=== PATIENT | female | born 1930 | race Caucasian/White ===

== ENCOUNTER → 2016-07-03 | Outpatient (CLI) | payer MEDICARE, BC ==
[~2016-07-03] MED LIST: ASPIRIN E.C. 8181 MG PO; ATIVAN 0.50.5 MG/TAB PO; CARDIZEM CD 12120 MG PO; CIPRO 250MG TA250 MG PO; COREG 3.123.125 MG/T PO; COREG 6.256.25 MG/TA PO; COUMADIN4 MG PO; GLUCOPHAGE500 MG/TAB PO; IMDUR 30MG30 MG/TAB PO; IMDUR 60MG60 MG/TAB PO; NITROSTAT0.4 MG/TAB SL; STOOL SOFTENER100 M2 PO; UNIRETIC PO; ZESTRIL 5MG5 MG PO; ZETIA 10MG TAB10 MG PO; ZOCOR 20MG20 MG PO
== END ==
LOC: COL.RAD 12:42
DX: R10.30 Lower abdominal pain, unspecified (principal); Z90.49 Acquired absence of other specified parts of digestive tract

== ENCOUNTER → 2017-02-20 | Outpatient (CLI) | payer MEDICARE, BC | LOC: MC.RAD 13:20 | DX: Z12.31 Encounter for screening mammogram for malignant neoplasm of breast (principal) ==

== ENCOUNTER → 2017-03-06 | Outpatient (CLI) | payer MEDICARE, BC ==
[2017-03-06 14:47] LABS: BASO # 0.1 (0.0-0.2); BASO % 0.8 % (0.0-2.0); EOS # 0.3 (0.0-0.7); EOS % 4.5 % (0-4.0); GRAN # 4.2 (1.4-6.5); HEMATOCRIT 39.1 % (37.0-47.0); HEMOGLOBIN 12.8 g/dl (12.5-16.0); MEAN CELL VOLUME 96 fl (80.0-100.0); MEAN CORPUSCULAR HEMOGLOBIN 31 pg (27.0-31.0); MEAN CORPUSCULAR HGB CONC 33 g/dl (33.0-37.0); MEAN PLATELET VOLUME 10.4 fl (7.4-10.4); MONO # 0.8 (0.1-0.6); MONO % 12.4 % (1.7-9.3); PLATELET COUNT 226 K/mm3 (130-400); RED BLOOD COUNT 4.07 M/mm3 (4.10-5.30); WHITE BLOOD COUNT 6.4 K/mm3 (4.8-10.8)
[2017-03-06 15:07] LABS: ADJUSTED CALCIUM 9.6 mg/dL (8.4-10.2); ALBUMIN 3.7 gm/dL (3.5-5.0); BILIRUBIN,TOTAL 1.2 mg/dL (0.0-1.0); CALCIUM 9.4 mg/dL (8.4-10.2); CREATININE, serum 0.83 mg/dL (0.52-1.25); POTASSIUM 4.4 mmol/L (3.4-5.0); TOTAL PROTEIN 6.9 gm/dL (6.4-8.2)
[2017-03-06 15:18] LABS: TROPONIN-I 0.023 ng/mL (0.000-0.034)
== END ==
LOC: ZCOL.LAB 14:36
PROVIDERS: Internal Medicine
DX: I25.10 Atherosclerotic heart disease of native coronary artery without angina pectoris (principal)

== ENCOUNTER → 2018-01-05 | Outpatient (CLI) | payer MEDICARE, BC ==
[~2018-01-05] MED LIST changes: +COREG12.5 MG PO; +INCRUSE EL62.5 MCG/A IH; +RANEXA 500MG T500 MG PO
== END ==
LOC: COL.RAD 10:43
DX: R91.1 Solitary pulmonary nodule (principal); Z95.2 Presence of prosthetic heart valve

== ENCOUNTER → 2018-02-17 | Outpatient (CLI) | payer MEDICARE, BC | LOC: MC.RAD 08:52 | DX: Z12.31 Encounter for screening mammogram for malignant neoplasm of breast (principal); Z78.0 Asymptomatic menopausal state ==

== ENCOUNTER → 2018-03-31 | Outpatient (CLI) | payer MEDICARE, BC | LOC: COL.RAD 10:21 | DX: N30.21 Other chronic cystitis with hematuria (principal); N26.1 Atrophy of kidney (terminal) ==

== ENCOUNTER 2018-05-09 15:31 | Inpatient (IN) | payer MEDICARE, BC ==
[2018-05-09] VITALS (155 sets, daily range): BP systolic 131–146; BP diastolic 54–60; PULSE 77–88; TEMP 97.9; O2SAT 94–100
[~2018-05-09] VITALS: Ht 157.5 cm; Wt 73.3 kg
[2018-05-09] MEDS ORDERED: COREG 6.256.25 MG/TA PO (16:41)
[2018-05-09] MEDS ORDERED: ISOSORBIDE MON120 MG PO (16:42)
[2018-05-09] MEDS ORDERED: ASPIRIN 81M81 MG/TA2 PO (16:44)
[2018-05-09] MEDS ORDERED: COUMADIN 2MG2 MG/TAB PO (16:46)
[2018-05-09 16:52] LABS: BASO % 0.4 % (0.0-2.0); EOS # 0.2 (0.0-0.7); EOS % 4.4 % (0-4.0); GRAN # 3.4 (1.4-6.5); GRAN % 62.9 % (42.2-75.2); LYMPH % 18.8 % (20.0-51.0); MEAN CELL VOLUME 102 fl (80.0-100.0); MEAN CORPUSCULAR HGB CONC 32 g/dl (33.0-37.0); MEAN PLATELET VOLUME 10.1 fl (7.4-10.4); MONO # 0.7 (0.1-0.6); MONO % 13.1 % (1.7-9.3); PLATELET COUNT 199 K/mm3 (130-400); RED BLOOD COUNT 2.06 M/mm3 (4.10-5.30); REDCELL DISTRIBUTION WIDTH-CV 15.3 % (11.5-14.5)
[2018-05-09 16:58] LABS: INR 4.6 (0.8-3.0)
[2018-05-09 17:00] LABS: PARTIAL THROMBOPLASTIN TIME 47.8 SECONDS (26.0-37.0)
[2018-05-09 17:02] LABS: ALANINE AMINOTRANSFERASE 34 U/L (9-52); ALBUMIN 3.1 gm/dL (3.5-5.0); ALKALINE PHOSPHATASE 51 U/L (50-136); ANION GAP 4 mmol/L (7-16); AST,SGOT 31 U/L (15-37); BILIRUBIN,TOTAL 0.5 mg/dL (0.0-1.0); BLOOD UREA NITROGEN 26 mg/dL (7-17); CALCIUM 8.4 mg/dL (8.4-10.2); CARBON DIOXIDE 28 mmol/L (22-30); CHLORIDE 107 mmol/L (98-107); CREATININE, serum 0.68 mg/dL (0.52-1.25); GLUCOSE 194 mg/dL (74-106); POTASSIUM 4.1 mmol/L (3.4-5.0); SODIUM 139 mmol/L (137-145); TOTAL PROTEIN 5.9 gm/dL (6.4-8.2)
[2018-05-09 17:06] LABS: HEMATOCRIT 21.1 % (37.0-47.0); HEMOGLOBIN 6.8 g/dl (12.5-16.0); MEAN CORPUSCULAR HEMOGLOBIN 33 pg (27.0-31.0)
[2018-05-09 17:20] LABS: TROPONIN-I < 0.012 ng/mL (0.000-0.034)
[2018-05-10] VITALS (412 sets, daily range): BP systolic 104–164; BP diastolic 45–67; PULSE 75–104; TEMP 97.8–98.5; O2SAT 89–100
[2018-05-10] MEDS ORDERED: TYLENOL 500MG500 MG PO (01:15)
[2018-05-10] MEDS ORDERED: FD GARD PO (01:19)
[2018-05-10 02:03] LABS: HEMATOCRIT 24.4 % (37.0-47.0); HEMOGLOBIN 8.1 g/dl (12.5-16.0)
[2018-05-10 05:20] LABS: BASO % 0.4 % (0.0-2.0); EOS # 0.3 (0.0-0.7); EOS % 4.6 % (0-4.0); GRAN # 3.6 (1.4-6.5); GRAN % 62.6 % (42.2-75.2); LYMPH # 1.2 (1.2-3.4); LYMPH % 20.3 % (20.0-51.0); MEAN CELL VOLUME 98 fl (80.0-100.0); MEAN CORPUSCULAR HGB CONC 33 g/dl (33.0-37.0); MEAN PLATELET VOLUME 9.9 fl (7.4-10.4); MONO # 0.7 (0.1-0.6); MONO % 11.9 % (1.7-9.3); PLATELET COUNT 176 K/mm3 (130-400); RED BLOOD COUNT 2.39 M/mm3 (4.10-5.30); REDCELL DISTRIBUTION WIDTH-CV 16.9 % (11.5-14.5)
[2018-05-10 05:23] LABS: HEMATOCRIT 23.4 % (37.0-47.0); HEMOGLOBIN 7.7 g/dl (12.5-16.0); MEAN CORPUSCULAR HEMOGLOBIN 32 pg (27.0-31.0)
[2018-05-10 05:32] LABS: ALANINE AMINOTRANSFERASE 41 U/L (9-52); ALBUMIN 2.9 gm/dL (3.5-5.0); ALKALINE PHOSPHATASE 43 U/L (50-136); ANION GAP 1 mmol/L (7-16); AST,SGOT 28 U/L (15-37); BILIRUBIN,TOTAL 1.1 mg/dL (0.0-1.0); BLOOD UREA NITROGEN 19 mg/dL (7-17); CALCIUM 8.3 mg/dL (8.4-10.2); CARBON DIOXIDE 29 mmol/L (22-30); CHLORIDE 111 mmol/L (98-107); CHOLESTEROL 100 mg/dL (120-200); CHOLESTEROL RISK RATIO 2.8; CREATININE, serum 0.61 mg/dL (0.52-1.25); GLUCOSE 128 mg/dL (74-106); HDL CHOLESTEROL 35 mg/dL; LDL CHOLESTEROL 36 mg/dL; POTASSIUM 3.9 mmol/L (3.4-5.0); SODIUM 141 mmol/L (137-145); TOTAL PROTEIN 5.6 gm/dL (6.4-8.2); TRIGLYCERIDE 145 mg/dL
[2018-05-10 05:45] LABS: TROPONIN-I < 0.012 ng/mL (0.000-0.034)
[2018-05-10 05:55] LABS: PROTHROMBIN TIME 34.1 SECONDS (9.7-12.8)
[2018-05-10 13:56] LABS: RETIC # 0.15 M/mm3 (0.02-0.16)
[2018-05-10 14:02] LABS: IRON,SERUM 85 ug/dL (35-150)
[2018-05-10 14:11] LABS: TOTAL IRON BINDING CAPACITY 370 ug/dL (265-497)
[2018-05-10 14:17] LABS: FOLATE (FOLIC ACID) 9.8 ng/mL (7.0-31.4)
[2018-05-10 14:41] LABS: FERRITIN 18 ng/mL (11-264)
[2018-05-10 18:15] LABS: BASO % 0.3 % (0.0-2.0); EOS # 0.2 (0.0-0.7); EOS % 1.8 % (0-4.0); GRAN # 6.9 (1.4-6.5); GRAN % 79.3 % (42.2-75.2); LYMPH # 0.8 (1.2-3.4); LYMPH % 9.4 % (20.0-51.0); MEAN CELL VOLUME 99 fl (80.0-100.0); MEAN CORPUSCULAR HGB CONC 33 g/dl (33.0-37.0); MEAN PLATELET VOLUME 10.4 fl (7.4-10.4); MONO # 0.8 (0.1-0.6); MONO % 8.6 % (1.7-9.3); PLATELET COUNT 204 K/mm3 (130-400); RED BLOOD COUNT 2.79 M/mm3 (4.10-5.30); REDCELL DISTRIBUTION WIDTH-CV 17.6 % (11.5-14.5)
[2018-05-10 18:21] LABS: HEMATOCRIT 27.7 % (37.0-47.0); HEMOGLOBIN 9.1 g/dl (12.5-16.0); MEAN CORPUSCULAR HEMOGLOBIN 33 pg (27.0-31.0)
[2018-05-11] VITALS (15 sets, daily range): BP systolic 83–141; BP diastolic 20–65; PULSE 84–95; TEMP 97.9–98.4
[2018-05-11 09:02] LABS: BASO % 0.2 % (0.0-2.0); EOS # 0.3 (0.0-0.7); EOS % 4.1 % (0-4.0); GRAN # 4.2 (1.4-6.5); GRAN % 69.6 % (42.2-75.2); LYMPH # 0.9 (1.2-3.4); LYMPH % 15.3 % (20.0-51.0); MEAN CELL VOLUME 103 fl (80.0-100.0); MEAN CORPUSCULAR HGB CONC 32 g/dl (33.0-37.0); MEAN PLATELET VOLUME 10.3 fl (7.4-10.4); MONO # 0.6 (0.1-0.6); MONO % 10.6 % (1.7-9.3); PLATELET COUNT 229 K/mm3 (130-400); RED BLOOD COUNT 2.43 M/mm3 (4.10-5.30); REDCELL DISTRIBUTION WIDTH-CV 17.7 % (11.5-14.5)
[2018-05-11 09:08] LABS: MEAN CORPUSCULAR HEMOGLOBIN 33 pg (27.0-31.0)
[2018-05-11 09:09] LABS: INR 1.3 (0.8-3.0); PROTHROMBIN TIME 14.8 SECONDS (9.7-12.8)
[2018-05-11 09:12] LABS: CALCIUM 8.7 mg/dL (8.4-10.2); CREATININE, serum 0.68 mg/dL (0.52-1.25); POTASSIUM 3.7 mmol/L (3.4-5.0)
[2018-05-12] VITALS (12 sets, daily range): BP systolic 110–150; BP diastolic 32–51; PULSE 79–94; TEMP 97.8–99
[2018-05-12 03:16] LABS: BASO % 0.2 % (0.0-2.0); EOS # 0.3 (0.0-0.7); GRAN # 4.2 (1.4-6.5); GRAN % 67.8 % (42.2-75.2); LYMPH # 0.9 (1.2-3.4); LYMPH % 14.8 % (20.0-51.0); MEAN CELL VOLUME 103 fl (80.0-100.0); MEAN CORPUSCULAR HGB CONC 31 g/dl (33.0-37.0); MEAN PLATELET VOLUME 10.2 fl (7.4-10.4); MONO # 0.8 (0.1-0.6); MONO % 12.9 % (1.7-9.3); PLATELET COUNT 181 K/mm3 (130-400); RED BLOOD COUNT 1.91 M/mm3 (4.10-5.30); REDCELL DISTRIBUTION WIDTH-CV 17.8 % (11.5-14.5)
[2018-05-12 03:17] LABS: HEMATOCRIT 19.7 % (37.0-47.0); HEMOGLOBIN 6.1 g/dl (12.5-16.0); MEAN CORPUSCULAR HEMOGLOBIN 32 pg (27.0-31.0)
[2018-05-12 03:24] LABS: INR 1.3 (0.8-3.0); PROTHROMBIN TIME 14.2 SECONDS (9.7-12.8)
[2018-05-12 03:28] LABS: CALCIUM 8.1 mg/dL (8.4-10.2); CREATININE, serum 0.69 mg/dL (0.52-1.25); MAGNESIUM 1.8 mg/dL (1.6-2.3)
[2018-05-12 11:08] LABS: HEMATOCRIT 24.5 % (37.0-47.0); HEMOGLOBIN 7.8 g/dl (12.5-16.0)
[2018-05-12 18:39] LABS: HEMATOCRIT 23.9 % (37.0-47.0); HEMOGLOBIN 7.8 g/dl (12.5-16.0)
[2018-05-13] VITALS (9 sets, daily range): BP systolic 105–140; BP diastolic 41–63; PULSE 79–89; TEMP 97.7–98.8
[2018-05-13 02:27] LABS: BASO % 0.3 % (0.0-2.0); EOS # 0.3 (0.0-0.7); EOS % 4.3 % (0-4.0); GRAN # 4.6 (1.4-6.5); GRAN % 66.2 % (42.2-75.2); LYMPH # 1.2 (1.2-3.4); LYMPH % 17.4 % (20.0-51.0); MEAN CELL VOLUME 100 fl (80.0-100.0); MEAN CORPUSCULAR HGB CONC 32 g/dl (33.0-37.0); MEAN PLATELET VOLUME 10.1 fl (7.4-10.4); MONO # 0.8 (0.1-0.6); MONO % 11.4 % (1.7-9.3); PLATELET COUNT 169 K/mm3 (130-400); RED BLOOD COUNT 2.17 M/mm3 (4.10-5.30); REDCELL DISTRIBUTION WIDTH-CV 18.2 % (11.5-14.5)
[2018-05-13 02:31] LABS: HEMATOCRIT 21.6 % (37.0-47.0); MEAN CORPUSCULAR HEMOGLOBIN 32 pg (27.0-31.0)
[2018-05-13 02:39] LABS: CALCIUM 8.2 mg/dL (8.4-10.2); CREATININE, serum 0.7 mg/dL (0.52-1.25); POTASSIUM 3.7 mmol/L (3.4-5.0)
[2018-05-13 08:54] LABS: HEMATOCRIT 27.9 % (37.0-47.0); HEMOGLOBIN 8.9 g/dl (12.5-16.0)
== END 2018-05-13 13:38 | disposition short-term general hospital (02) | DRG 378 ==
LOC: COL.ER 15:31 → MEDICAL 17:27 → ICU 17:27 → MEDICAL 05-10 20:27
PROVIDERS: Family Medicine; Hospitalist; Internal Medicine; Internal Medicine Cardiovascular Disease; Internal Medicine Gastroenterology; Nurse Practitioner Family; Physician Assistant
PROC: 0W3P8ZZ Control Bleeding in Gastrointestinal Tract, Via Natural or Artificial Opening Endoscopic (ICD-10-PCS; principal; 2018-05-11 12:45)
PROC: 0DJD8ZZ Inspection of Lower Intestinal Tract, Via Natural or Artificial Opening Endoscopic (ICD-10-PCS; 2018-05-11 12:45)
DX: K31.811 Angiodysplasia of stomach and duodenum with bleeding (principal); I25.110 Atherosclerotic heart disease of native coronary artery with unstable angina pectoris; D62 Acute posthemorrhagic anemia; Z66 Do not resuscitate; I16.0 Hypertensive urgency; I10 Essential (primary) hypertension; I25.10 Atherosclerotic heart disease of native coronary artery without angina pectoris; E11.9 Type 2 diabetes mellitus without complications; Z95.5 Presence of coronary angioplasty implant and graft; E78.5 Hyperlipidemia, unspecified; Z79.01 Long term (current) use of anticoagulants; Z95.2 Presence of prosthetic heart valve; Z87.891 Personal history of nicotine dependence; K29.80 Duodenitis without bleeding
CPT/HCPCS: 99222-AI; 99233-AI; 99239; A9502; A9560; C9113; J1644; J1815; J2405; J2704; J2765; J2785; J7030; P9016

== ENCOUNTER → 2018-08-03 | Outpatient (CLI) | payer MEDICARE, BC | LOC: ZCOL.LAB 11:26 | DX: D62 Acute posthemorrhagic anemia (principal) ==

== ENCOUNTER → 2018-08-03 | Outpatient (CLI) | payer MEDICARE, BC | LOC: ZCOL.LAB 15:10 | DX: D62 Acute posthemorrhagic anemia (principal); R19.5 Other fecal abnormalities ==

== ENCOUNTER → 2018-08-18 | Outpatient (CLI) | payer MEDICARE, BC ==
[~2018-08-18] MED LIST changes: +ASPIRIN 81M81 MG/TA2 PO; +COUMADIN 2MG2 MG/TAB PO; +FD GARD PO; +ISOSORBIDE MON120 MG PO; +TYLENOL 500MG500 MG PO
[2018-08-18 17:31] LABS: BASO % 0.5 % (0.0-2.0); EOS # 0.4 (0.0-0.7); EOS % 6.1 % (0-4.0); GRAN # 3.3 (1.4-6.5); GRAN % 57.5 % (42.2-75.2); LYMPH # 1.3 (1.2-3.4); LYMPH % 22.6 % (20.0-51.0); MEAN CELL VOLUME 82 fl (80.0-100.0); MEAN CORPUSCULAR HGB CONC 30 g/dl (33.0-37.0); MEAN PLATELET VOLUME 9.8 fl (7.4-10.4); MONO # 0.8 (0.1-0.6); MONO % 13.1 % (1.7-9.3); PLATELET COUNT 319 K/mm3 (130-400); RED BLOOD COUNT 3.58 M/mm3 (4.10-5.30); REDCELL DISTRIBUTION WIDTH-CV 19.9 % (11.5-14.5)
[2018-08-18 17:39] LABS: HEMATOCRIT 29.4 % (37.0-47.0); HEMOGLOBIN 8.8 g/dl (12.5-16.0); MEAN CORPUSCULAR HEMOGLOBIN 25 pg (27.0-31.0)
== END ==
LOC: ZCOL.LAB 15:58
PROVIDERS: Nurse Practitioner Family
DX: D62 Acute posthemorrhagic anemia (principal)

== ENCOUNTER → 2018-08-20 | Outpatient (CLI) | payer MEDICARE, BC | LOC: COL.RAD 13:53 | DX: N26.1 Atrophy of kidney (terminal) (principal); I25.10 Atherosclerotic heart disease of native coronary artery without angina pectoris; R91.1 Solitary pulmonary nodule; Z90.49 Acquired absence of other specified parts of digestive tract ==

== ENCOUNTER → 2018-08-23 | Outpatient (CLI) | payer MEDICARE, BC ==
[2018-08-23 10:19] LABS: BASO % 0.6 % (0.0-2.0); EOS # 0.4 (0.0-0.7); EOS % 7.1 % (0-4.0); GRAN % 57.9 % (42.2-75.2); LYMPH % 19.7 % (20.0-51.0); MEAN CELL VOLUME 84 fl (80.0-100.0); MEAN CORPUSCULAR HGB CONC 30 g/dl (33.0-37.0); MONO # 0.8 (0.1-0.6); MONO % 14.5 % (1.7-9.3); PLATELET COUNT 305 K/mm3 (130-400); RED BLOOD COUNT 3.44 M/mm3 (4.10-5.30); REDCELL DISTRIBUTION WIDTH-CV 20.4 % (11.5-14.5)
[2018-08-23 10:25] LABS: HEMATOCRIT 28.9 % (37.0-47.0); HEMOGLOBIN 8.6 g/dl (12.5-16.0); MEAN CORPUSCULAR HEMOGLOBIN 25 pg (27.0-31.0)
== END ==
LOC: ZCOL.LAB 09:26
PROVIDERS: Internal Medicine
DX: D62 Acute posthemorrhagic anemia (principal)

== ENCOUNTER → 2018-08-31 | Outpatient (CLI) | payer MEDICARE, BC ==
[2018-08-31 12:00] LABS: BASO % 0.7 % (0.0-2.0); EOS # 0.2 (0.0-0.7); EOS % 5.2 % (0-4.0); GRAN # 2.8 (1.4-6.5); GRAN % 64.7 % (42.2-75.2); LYMPH # 0.8 (1.2-3.4); LYMPH % 17.8 % (20.0-51.0); MEAN CELL VOLUME 82 fl (80.0-100.0); MEAN CORPUSCULAR HGB CONC 29 g/dl (33.0-37.0); MEAN PLATELET VOLUME 9.9 fl (7.4-10.4); MONO # 0.5 (0.1-0.6); MONO % 11.4 % (1.7-9.3); PLATELET COUNT 311 K/mm3 (130-400); RED BLOOD COUNT 3.54 M/mm3 (4.10-5.30); REDCELL DISTRIBUTION WIDTH-CV 19.9 % (11.5-14.5)
[2018-08-31 12:01] LABS: HEMATOCRIT 29.1 % (37.0-47.0); HEMOGLOBIN 8.5 g/dl (12.5-16.0); MEAN CORPUSCULAR HEMOGLOBIN 24 pg (27.0-31.0)
[2018-08-31 12:08] LABS: IRON,SERUM 27 ug/dL (35-150)
[2018-08-31 12:17] LABS: TOTAL IRON BINDING CAPACITY 485 ug/dL (265-497)
[2018-08-31 12:43] LABS: FERRITIN 9 ng/mL (11-264)
== END ==
LOC: ZCOL.LAB 10:55
PROVIDERS: Nurse Practitioner Family
DX: D50.0 Iron deficiency anemia secondary to blood loss (chronic) (principal)

== ENCOUNTER → 2019-03-25 | Outpatient (CLI) | payer MEDICARE, BC ==
[2019-03-25 11:29] LABS: MUCOUS Present /lpf; PH 6 (5-8); SQUAMOUS EPITHELIAL 0-2 /hpf; URINE APPEARANCE Cloudy; URINE BACTERIA None Seen /hpf; URINE BILIRUBIN Negative (NEGATIVE); URINE BLOOD 3+ (NEGATIVE); URINE COLOR Amber; URINE GLUCOSE Negative (NEGATIVE); URINE KETONE Negative (NEGATIVE); URINE LEUKOCYTE ESTERASE 2+ (NEGATIVE); URINE NITRATE Negative (NEGATIVE); URINE PROTEIN(semi-quant) 2+ (NEGATIVE); URINE RBC >50 /hpf; URINE UROBILINOGEN Negative (NEGATIVE)
[2019-03-25 11:42] LABS: COLLECTION METHOD CLEAN CATCH
== END ==
LOC: ZCOL.LAB 10:33
PROVIDERS: Family Medicine
DX: N30.01 Acute cystitis with hematuria (principal); R31.9 Hematuria, unspecified

== ENCOUNTER → 2019-05-17 | Outpatient (CLI) | payer MEDICARE, BC | LOC: COL.RAD 07:44 | DX: Z01.812 Encounter for preprocedural laboratory examination (principal); R10.13 Epigastric pain; Z90.49 Acquired absence of other specified parts of digestive tract | CPT/HCPCS: Q9967 ==

== ENCOUNTER 2019-06-27 14:38 | Emergency (ER) | payer MEDICARE, BC ==
[~2019-06-27] VITALS: Ht 157.5 cm; Wt 69.5 kg
[2019-06-27 15:12] LABS: BASO % 0.4 % (0.0-2.0); EOS # 0.4 (0.0-0.7); EOS % 5.5 % (0-4.0); GRAN # 4.6 (1.4-6.5); GRAN % 67.5 % (42.2-75.2); HEMOGLOBIN 10.1 g/dl (12.5-16.0); LYMPH # 0.9 (1.2-3.4); LYMPH % 13.2 % (20.0-51.0); MEAN CELL VOLUME 88 fl (80.0-100.0); MEAN CORPUSCULAR HEMOGLOBIN 26 pg (27.0-31.0); MEAN CORPUSCULAR HGB CONC 30 g/dl (33.0-37.0); MONO # 0.9 (0.1-0.6); MONO % 13.3 % (1.7-9.3); PLATELET COUNT 268 K/mm3 (130-400); RED BLOOD COUNT 3.82 M/mm3 (4.10-5.30); REDCELL DISTRIBUTION WIDTH-CV 15.6 % (11.5-14.5)
[2019-06-27 15:19] LABS: INR 2.5 (0.8-3.0); PROTHROMBIN TIME 29.7 SECONDS (9.7-12.8)
[2019-06-27 15:22] LABS: HEMATOCRIT 33.5 % (37.0-47.0); PARTIAL THROMBOPLASTIN TIME 45.2 SECONDS (26.0-37.0)
[2019-06-27 15:24] LABS: ALANINE AMINOTRANSFERASE 18 U/L (9-52); ALBUMIN 4.3 gm/dL (3.5-5.0); ALKALINE PHOSPHATASE 88 U/L (50-136); ANION GAP 10 mmol/L (7-16); AST,SGOT 33 U/L (15-37); BILIRUBIN,TOTAL 0.7 mg/dL (0.0-1.0); BLOOD UREA NITROGEN 19 mg/dL (7-17); CALCIUM 9.1 mg/dL (8.4-10.2); CARBON DIOXIDE 26 mmol/L (22-30); CHLORIDE 102 mmol/L (98-107); CREATININE, serum 0.74 (0.52-1.25); GLUCOSE 203 mg/dL (74-106); POTASSIUM 4.4 mmol/L (3.4-5.0); SODIUM 138 mmol/L (137-145); TOTAL PROTEIN 8.1 gm/dL (6.4-8.2)
[2019-06-27 15:37] LABS: TROPONIN-I < 0.012 ng/mL (0.000-0.035)
[2019-06-27] MEDS ORDERED: ASPIRIN 81M81 MG/TA2 PO (15:47)
[2019-06-27] MEDS ORDERED: COREG 6.256.25 MG/TA PO (15:48)
[2019-06-27] MEDS ORDERED: ISOSORBIDE MON120 MG PO (15:49)
[2019-06-27] MEDS ORDERED: ZETIA 10MG TAB10 MG PO (15:49)
[2019-06-27] MEDS ORDERED: GLUCOPHAGE500 MG/TAB PO (15:49)
[2019-06-27] MEDS ORDERED: ZOCOR 20MG20 MG PO (15:50)
[2019-06-27] MEDS ORDERED: ATIVAN 0.50.5 MG/TAB PO (15:51)
[2019-06-27] MEDS ORDERED: COUMADIN 3MG3 MG/TAB PO ×2 (15:51→15:52)
[2019-06-27] MEDS ORDERED: PROTONIX 40MG T40 MG PO (15:53)
[2019-06-27] MEDS ORDERED: COUMADIN4 MG PO (15:53)
[2019-06-27 16:11] LABS: COLLECTION METHOD CLEAN CATCH
[2019-06-27 16:22] LABS: PH 6 (5-8); SQUAMOUS EPITHELIAL None Seen /hpf; URINE APPEARANCE Clear; URINE BACTERIA Rare /hpf; URINE BILIRUBIN Negative (NEGATIVE); URINE BLOOD Negative (NEGATIVE); URINE COLOR Straw; URINE GLUCOSE Negative (NEGATIVE); URINE KETONE Negative (NEGATIVE); URINE LEUKOCYTE ESTERASE Negative (NEGATIVE); URINE NITRATE Negative (NEGATIVE); URINE PROTEIN(semi-quant) Negative (NEGATIVE); URINE RBC 0-2 /hpf; URINE UROBILINOGEN Negative (NEGATIVE)
[2019-06-27 18:38] VITALS: BP 154/64; PULSE 75; TEMP 98.4
== END 2019-06-27 18:38 | disposition home or self-care (01) ==
LOC: COL.ER 14:38
PROVIDERS: Family Medicine
DX: F41.9 Anxiety disorder, unspecified (principal); R07.89 Other chest pain; D64.9 Anemia, unspecified; I25.10 Atherosclerotic heart disease of native coronary artery without angina pectoris; I10 Essential (primary) hypertension; E11.9 Type 2 diabetes mellitus without complications; K21.9 Gastro-esophageal reflux disease without esophagitis; Z79.01 Long term (current) use of anticoagulants; Z79.82 Long term (current) use of aspirin

== ENCOUNTER → 2019-08-18 | Outpatient (CLI) | payer MEDICARE, BC ==
[~2019-08-18] MED LIST changes: +COUMADIN 3MG3 MG/TAB PO; +PROTONIX 40MG T40 MG PO
== END ==
LOC: COL.RAD 15:06
DX: R13.12 Dysphagia, oropharyngeal phase (principal); R49.0 Dysphonia

== ENCOUNTER 2019-12-03 18:26 | Emergency (ER) | payer MEDICARE, BC ==
[~2019-12-03] VITALS: Ht 157.5 cm; Wt 70.5 kg
[2019-12-03 18:48] LABS: BASO % 0.5 % (0.0-2.0); EOS # 0.5 (0.0-0.7); EOS % 7.7 % (0-4.0); GRAN % 64.5 % (42.2-75.2); HEMATOCRIT 34.1 % (37.0-47.0); LYMPH # 0.9 (1.2-3.4); LYMPH % 13.8 % (20.0-51.0); MEAN CELL VOLUME 101 fl (80.0-100.0); MEAN CORPUSCULAR HEMOGLOBIN 33 pg (27.0-31.0); MEAN CORPUSCULAR HGB CONC 32 g/dl (33.0-37.0); MEAN PLATELET VOLUME 10.2 fl (7.4-10.4); MONO # 0.8 (0.1-0.6); MONO % 13.2 % (1.7-9.3); PLATELET COUNT 253 K/mm3 (130-400); RED BLOOD COUNT 3.37 M/mm3 (4.10-5.30); REDCELL DISTRIBUTION WIDTH-CV 14.6 % (11.5-14.5)
[2019-12-03 18:52] LABS: INR 2.9 (0.8-3.0); PROTHROMBIN TIME 32.5 SECONDS (9.7-12.8)
[2019-12-03 18:55] LABS: PARTIAL THROMBOPLASTIN TIME 46.9 SECONDS (26.0-37.0)
[2019-12-03 19:02] LABS: ALANINE AMINOTRANSFERASE 26 U/L (4-34); ALBUMIN 4.2 gm/dL (3.5-5.0); ALKALINE PHOSPHATASE 73 U/L (50-136); ANION GAP 8 mmol/L (7-16); AST,SGOT 47 U/L (15-37); BLOOD UREA NITROGEN 19 mg/dL (7-17); CALCIUM 9.5 mg/dL (8.4-10.2); CARBON DIOXIDE 27 mmol/L (22-30); CHLORIDE 102 mmol/L (98-107); CREATININE, serum 0.76 (0.52-1.25); GLUCOSE 133 mg/dL (74-106); POTASSIUM 4.8 mmol/L (3.4-5.0); SODIUM 137 mmol/L (137-145); TOTAL PROTEIN 8.2 gm/dL (6.4-8.2)
[2019-12-03 19:13] LABS: TROPONIN-I < 0.012 ng/mL (0.000-0.035)
[2019-12-03 21:41] VITALS: BP 186/89; PULSE 81; TEMP 98.7
== END 2019-12-03 21:42 | disposition home or self-care (01) ==
LOC: COL.ER 18:26
PROVIDERS: Family Medicine
DX: I10 Essential (primary) hypertension (principal); I25.10 Atherosclerotic heart disease of native coronary artery without angina pectoris; Z79.01 Long term (current) use of anticoagulants; Z79.82 Long term (current) use of aspirin; Z95.5 Presence of coronary angioplasty implant and graft

== ENCOUNTER 2019-12-19 20:13 | Emergency (ER) | payer MEDICARE, BC ==
[~2019-12-19] VITALS: Ht 157.5 cm; Wt 72.7 kg
[2019-12-19 20:46] LABS: BASO % 0.8 % (0.0-2.0); EOS # 0.3 (0.0-0.7); EOS % 6.7 % (0-4.0); GRAN # 2.7 (1.4-6.5); GRAN % 57.4 % (42.2-75.2); HEMOGLOBIN 10.6 g/dl (12.5-16.0); LYMPH # 0.9 (1.2-3.4); LYMPH % 19.1 % (20.0-51.0); MEAN CELL VOLUME 101 fl (80.0-100.0); MEAN CORPUSCULAR HEMOGLOBIN 32 pg (27.0-31.0); MEAN CORPUSCULAR HGB CONC 32 g/dl (33.0-37.0); MEAN PLATELET VOLUME 10.1 fl (7.4-10.4); MONO # 0.8 (0.1-0.6); MONO % 15.8 % (1.7-9.3); PLATELET COUNT 251 K/mm3 (130-400); REDCELL DISTRIBUTION WIDTH-CV 13.8 % (11.5-14.5)
[2019-12-19 20:52] LABS: INR 2.6 (0.8-3.0); PROTHROMBIN TIME 29.2 SECONDS (9.7-12.8)
[2019-12-19 20:53] LABS: HEMATOCRIT 33.2 % (37.0-47.0)
[2019-12-19 20:59] LABS: ALANINE AMINOTRANSFERASE 18 U/L (4-34); ALBUMIN 4.2 gm/dL (3.5-5.0); ALKALINE PHOSPHATASE 71 U/L (50-136); ANION GAP 8 mmol/L (7-16); AST,SGOT 33 U/L (15-37); BILIRUBIN,TOTAL 0.7 mg/dL (0.0-1.0); BLOOD UREA NITROGEN 20 mg/dL (7-17); CALCIUM 9.3 mg/dL (8.4-10.2); CARBON DIOXIDE 26 mmol/L (22-30); CHLORIDE 103 mmol/L (98-107); CREATINE KINASE 65 U/L (30-135); CREATININE, serum 0.86 (0.52-1.25); GLUCOSE 169 mg/dL (74-106); POTASSIUM 4.3 mmol/L (3.4-5.0); SODIUM 137 mmol/L (137-145); TOTAL PROTEIN 8.2 gm/dL (6.4-8.2)
[2019-12-19 21:11] LABS: TROPONIN-I < 0.012 ng/mL (0.000-0.035)
[2019-12-19 21:31] VITALS: TEMP 98
[2019-12-19 22:44] LABS: COLLECTION METHOD CLEAN CATCH
[2019-12-19 22:50] LABS: PH 7 (5-8); SQUAMOUS EPITHELIAL None Seen /hpf; URINE APPEARANCE Clear; URINE BACTERIA None Seen /hpf; URINE BILIRUBIN Negative (NEGATIVE); URINE BLOOD Negative (NEGATIVE); URINE COLOR Straw; URINE GLUCOSE Negative (NEGATIVE); URINE KETONE Negative (NEGATIVE); URINE LEUKOCYTE ESTERASE Negative (NEGATIVE); URINE NITRATE Negative (NEGATIVE); URINE PROTEIN(semi-quant) Negative (NEGATIVE); URINE RBC 0-2 /hpf; URINE UROBILINOGEN Negative (NEGATIVE)
[2019-12-20 02:10] VITALS: BP 151/80; PULSE 84
== END 2019-12-20 02:10 | disposition home or self-care (01) ==
LOC: COL.ER 20:13
PROVIDERS: Emergency Medicine
DX: I10 Essential (primary) hypertension (principal); R10.13 Epigastric pain; E78.5 Hyperlipidemia, unspecified; I25.2 Old myocardial infarction; Z79.01 Long term (current) use of anticoagulants; Z90.710 Acquired absence of both cervix and uterus; Z79.84 Long term (current) use of oral hypoglycemic drugs; Z79.82 Long term (current) use of aspirin
CPT/HCPCS: J0360; J2060; Q9967

== ENCOUNTER → 2020-12-07 | Outpatient (CLI) | payer MEDICARE, BC ==
[~2020-12-07] MED LIST changes: +ACIDOPHILIS PO; +ALMACONE 360 M360 ML PO; +ANTI-DIARRHEAL2 MG PO; +ATIVAN 1MG T1 MG/TAB PO; +COLACE 100100 MG/CAP PO; +CYMBALTA 30MG30 MG PO; +DEBROX OT; +DULCOLAX S10 MG/SUPP RC; +DULCOLAX STOOL100 MG PO; +ENULOSE10 GM/15 M PO; +FENTANYL 12MCG TD; +FENTANYL 25 MCG TD; +FLEXERIL 1010 MG/TAB PO; +FLEXERIL5 MG PO; +HYDROCORTISONE30 G3 TP; +IMODIUM 2MG CAPS2 MG PO; +LIDODERM 5% PATC1 EA TP; +LIPITOR 10MG10 MG PO; +LOVENOX 8080 MG/0.8; +MIACALCIN NASA3.7 ML NS; +MIRALAX PA17 GM/Dose PO; +NORCO 325 MG-51 TAB PO; +OMNICEF 300MG300 MG PO; +PREDNISONE20 MG PO; +PRINIVIL20 MG PO; +PROBIOTIC BLEN1 EACH PO; +ROXANOL 20MG20 MG/ML SL; +SALONPAS1 EACH TP; +SYSTANE 0.3-0.1 EACH OP; +TYLENOL 325MG325 MG PO; +TYLENOL SU650 MG/SUP RC; +ZESTRIL 10MG10 MG PO; +ZOFRAN 4MG T4 MG/TAB PO; +ZOLOFT 50MG50 MG PO
[2020-12-07 13:20] LABS: BASO % 0.7 % (0.0-2.0); EOS # 0.1 (0.0-0.7); EOS % 2.2 % (0-4.0); GRAN # 4.4 (1.4-6.5); HEMOGLOBIN 10.4 g/dl (12.5-16.0); LYMPH # 0.5 (1.2-3.4); LYMPH % 8.8 % (20.0-51.0); MEAN CELL VOLUME 97 fl (80.0-100.0); MEAN CORPUSCULAR HEMOGLOBIN 32 pg (27.0-31.0); MEAN CORPUSCULAR HGB CONC 33 g/dl (33.0-37.0); MEAN PLATELET VOLUME 10.2 fl (7.4-10.4); MONO # 0.8 (0.1-0.6); MONO % 13.1 % (1.7-9.3); PLATELET COUNT 331 K/mm3 (130-400); RED BLOOD COUNT 3.25 M/mm3 (4.10-5.30); REDCELL DISTRIBUTION WIDTH-CV 14.4 % (11.5-14.5)
[2020-12-07 13:21] LABS: HEMATOCRIT 31.4 % (37.0-47.0)
[2020-12-07 13:22] LABS: IRON,SERUM 57 ug/dL (35-150)
[2020-12-07 13:31] LABS: TOTAL IRON BINDING CAPACITY 347 ug/dL (265-497)
== END ==
LOC: ZCOL.LAB 12:45
PROVIDERS: Nurse Practitioner Family
DX: D50.0 Iron deficiency anemia secondary to blood loss (chronic) (principal)

== ENCOUNTER 2020-12-30 14:38 | Emergency (ER) | payer MEDICARE, BC ==
[~2020-12-30] VITALS: Ht 157.5 cm; Wt 68.2 kg
[~2020-12-30 14:38] MED LIST changes: -ACIDOPHILIS PO; -ALMACONE 360 M360 ML PO; -ANTI-DIARRHEAL2 MG PO; -ATIVAN 1MG T1 MG/TAB PO; -COLACE 100100 MG/CAP PO; -CYMBALTA 30MG30 MG PO; -DEBROX OT; -DULCOLAX S10 MG/SUPP RC; -DULCOLAX STOOL100 MG PO; -ENULOSE10 GM/15 M PO; -FENTANYL 12MCG TD; -FENTANYL 25 MCG TD; -FLEXERIL 1010 MG/TAB PO; -FLEXERIL5 MG PO; -HYDROCORTISONE30 G3 TP; -IMODIUM 2MG CAPS2 MG PO; -LIDODERM 5% PATC1 EA TP; -LIPITOR 10MG10 MG PO; -LOVENOX 8080 MG/0.8; -MIACALCIN NASA3.7 ML NS; -MIRALAX PA17 GM/Dose PO; -NORCO 325 MG-51 TAB PO; -OMNICEF 300MG300 MG PO; -PREDNISONE20 MG PO; -PRINIVIL20 MG PO; -PROBIOTIC BLEN1 EACH PO; -ROXANOL 20MG20 MG/ML SL; -SALONPAS1 EACH TP; -SYSTANE 0.3-0.1 EACH OP; -TYLENOL 325MG325 MG PO; -TYLENOL SU650 MG/SUP RC; -ZESTRIL 10MG10 MG PO; -ZOFRAN 4MG T4 MG/TAB PO; -ZOLOFT 50MG50 MG PO
[2020-12-30 14:50] VITALS: TEMP 97.9
[2020-12-30 15:42] LABS: BASO % 0.6 % (0.0-2.0); EOS # 0.4 (0.0-0.7); EOS % 6.9 % (0-4.0); GRAN # 3.5 (1.4-6.5); GRAN % 67.3 % (42.2-75.2); HEMOGLOBIN 10.9 g/dl (12.5-16.0); LYMPH # 0.6 (1.2-3.4); LYMPH % 10.5 % (20.0-51.0); MEAN CELL VOLUME 96 fl (80.0-100.0); MEAN CORPUSCULAR HEMOGLOBIN 31 pg (27.0-31.0); MEAN CORPUSCULAR HGB CONC 32 g/dl (33.0-37.0); MEAN PLATELET VOLUME 9.4 fl (7.4-10.4); MONO # 0.8 (0.1-0.6); MONO % 14.5 % (1.7-9.3); PLATELET COUNT 301 K/mm3 (130-400); RED BLOOD COUNT 3.52 M/mm3 (4.10-5.30); REDCELL DISTRIBUTION WIDTH-CV 14.5 % (11.5-14.5)
[2020-12-30 15:43] LABS: HEMATOCRIT 33.9 % (37.0-47.0)
[2020-12-30 15:49] LABS: CALCIUM 9.8 mg/dL (8.4-10.2); CREATININE, serum 0.84 (0.52-1.25); POTASSIUM 4.4 mmol/L (3.4-5.0)
[2020-12-30 15:58] LABS: PROTHROMBIN TIME 94.6 SECONDS (9.7-12.8)
[2020-12-30 15:59] LABS: INR 8.3 (0.8-3.0)
[2020-12-30] MEDS ORDERED: SALONPAS1 EACH TP (17:33)
[2020-12-30 17:59] VITALS: BP 164/66; PULSE 72
[2021-02-16] MEDS ORDERED: ZESTRIL 5MG5 MG PO (18:47)
[2021-02-16] MEDS ORDERED: ZOLOFT 50MG50 MG PO (18:50)
[2021-02-16] MEDS ORDERED: NORCO 325 MG-51 TAB PO (18:52)
[2021-02-16] MEDS ORDERED: FENTANYL 12MCG TD (18:54)
[2021-02-19] MEDS ORDERED: FLEXERIL5 MG PO (08:37)
[2021-02-19] MEDS ORDERED: MIRALAX PA17 GM/Dose PO (08:40)
[2021-02-19] MEDS ORDERED: GLUCOPHAGE500 MG/TAB PO (08:40)
[2021-02-19] MEDS ORDERED: PROTONIX 40MG T40 MG PO (08:40)
[2021-02-19] MEDS ORDERED: DULCOLAX STOOL100 MG PO (08:41)
[2021-02-19] MEDS ORDERED: FENTANYL 12MCG TD (08:42)
[2021-02-19] MEDS ORDERED: ZOLOFT 50MG50 MG PO (08:42)
[2021-02-19] MEDS ORDERED: NORCO 325 MG-51 TAB PO (08:43)
[2021-02-19] MEDS ORDERED: ZESTRIL 10MG10 MG PO ×2 (08:43)
[2021-02-19] MEDS ORDERED: COREG 6.256.25 MG/TA PO (08:43)
[2021-02-19] MEDS ORDERED: ASPIRIN 81M81 MG/TA2 PO (08:43)
[2021-02-19] MEDS ORDERED: ZETIA 10MG TAB10 MG PO (08:44)
[2021-02-19] MEDS ORDERED: ISOSORBIDE MON120 MG PO (08:44)
[2021-02-19] MEDS ORDERED: ZOCOR 20MG20 MG PO (08:44)
[2021-02-19] MEDS ORDERED: OMNICEF 300MG300 MG PO (08:45)
== END 2020-12-30 18:00 | disposition home or self-care (01) ==
LOC: COL.ER 14:38
PROVIDERS: Physician Assistant
DX: R07.81 Pleurodynia (principal); D68.8 Other specified coagulation defects; I25.2 Old myocardial infarction; I25.10 Atherosclerotic heart disease of native coronary artery without angina pectoris; E11.9 Type 2 diabetes mellitus without complications; E78.5 Hyperlipidemia, unspecified; I10 Essential (primary) hypertension; Z79.82 Long term (current) use of aspirin; Z79.01 Long term (current) use of anticoagulants; Z79.84 Long term (current) use of oral hypoglycemic drugs; Z79.899 Other long term (current) drug therapy
CPT/HCPCS: Q9967

== ENCOUNTER → 2021-02-04 | Outpatient (CLI) | payer MEDICARE, BC ==
[~2021-02-04] MED LIST changes: +ACIDOPHILIS PO; +ALMACONE 360 M360 ML PO; +ANTI-DIARRHEAL2 MG PO; +ATIVAN 1MG T1 MG/TAB PO; +COLACE 100100 MG/CAP PO; +CYMBALTA 30MG30 MG PO; +DEBROX OT; +DULCOLAX S10 MG/SUPP RC; +DULCOLAX STOOL100 MG PO; +ENULOSE10 GM/15 M PO; +FENTANYL 12MCG TD; +FENTANYL 25 MCG TD; +FLEXERIL 1010 MG/TAB PO; +FLEXERIL5 MG PO; +HYDROCORTISONE30 G3 TP; +IMODIUM 2MG CAPS2 MG PO; +LIDODERM 5% PATC1 EA TP; +LIPITOR 10MG10 MG PO; +LOVENOX 8080 MG/0.8; +MIACALCIN NASA3.7 ML NS; +MIRALAX PA17 GM/Dose PO; +NORCO 325 MG-51 TAB PO; +OMNICEF 300MG300 MG PO; +PREDNISONE20 MG PO; +PRINIVIL20 MG PO; +PROBIOTIC BLEN1 EACH PO; +ROXANOL 20MG20 MG/ML SL; +SALONPAS1 EACH TP; +SYSTANE 0.3-0.1 EACH OP; +TYLENOL 325MG325 MG PO; +TYLENOL SU650 MG/SUP RC; +ZESTRIL 10MG10 MG PO; +ZOFRAN 4MG T4 MG/TAB PO; +ZOLOFT 50MG50 MG PO
== END ==
LOC: ZCOL.LAB 18:00
DX: N39.0 Urinary tract infection, site not specified (principal)

== ENCOUNTER 2021-02-26 10:06 | Outpatient (CLI) | payer MEDICARE, BC ==
[~2021-02-26] VITALS: Ht 157.5 cm; Wt 64.1 kg
[2021-02-26] VITALS (16 sets, daily range): BP systolic 160–207; BP diastolic 58–115; PULSE 76–94; TEMP 98.4
[~2021-02-26 10:06] MED LIST changes: -ACIDOPHILIS PO; -ALMACONE 360 M360 ML PO; -ANTI-DIARRHEAL2 MG PO; -ATIVAN 1MG T1 MG/TAB PO; -COLACE 100100 MG/CAP PO; -CYMBALTA 30MG30 MG PO; -DEBROX OT; -DULCOLAX S10 MG/SUPP RC; -ENULOSE10 GM/15 M PO; -FENTANYL 25 MCG TD; -FLEXERIL 1010 MG/TAB PO; -HYDROCORTISONE30 G3 TP; -IMODIUM 2MG CAPS2 MG PO; -LIDODERM 5% PATC1 EA TP; -LIPITOR 10MG10 MG PO; -LOVENOX 8080 MG/0.8; -MIACALCIN NASA3.7 ML NS; -PREDNISONE20 MG PO; -PRINIVIL20 MG PO; -PROBIOTIC BLEN1 EACH PO; -ROXANOL 20MG20 MG/ML SL; -SYSTANE 0.3-0.1 EACH OP; -TYLENOL 325MG325 MG PO; -TYLENOL SU650 MG/SUP RC; -ZOFRAN 4MG T4 MG/TAB PO
[2021-02-26] MEDS ORDERED: COUMADIN 3MG3 MG/TAB PO (12:52)
[2021-02-26] MEDS ORDERED: FENTANYL 12MCG TD (12:56)
[2021-02-26] MEDS ORDERED: FENTANYL 25 MCG TD (12:57)
[2021-02-26] MEDS ORDERED: NORCO 325 MG-51 TAB PO ×2 (13:00→13:01)
[2021-02-26] MEDS ORDERED: ATIVAN 0.50.5 MG/TAB PO (13:03)
[2021-02-26] MEDS ORDERED: LOVENOX 8080 MG/0.8 (13:05)
[2021-02-26] MEDS ORDERED: TYLENOL SU650 MG/SUP RC (13:11)
[2021-02-26] MEDS ORDERED: DULCOLAX S10 MG/SUPP RC (13:12)
[2021-02-26] MEDS ORDERED: COLACE 100100 MG/CAP PO (13:12)
--- NOTE | 2021-02-26 15:00 | NUR ---
Report taken from MINE Evans in [facility] [place] [facility]. Anesthesia was consulted during the procedure. Blood Pressure did elevate to 220/120. Post procedure her blood pressure was 186/84. This RN will continue to monitor and consult MINE Carreon at [facility] to gather last taken blood pressure medication.
--- NOTE | 2021-02-26 15:30 | NUR ---
Pt resting at this time. Daughter away to eat dinner.
--- NOTE | 2021-02-26 16:45 | NUR ---
Pt has intermittent pain with movement. Pt states her mid back pain is better than it was prior to the procedure. Pt is moving more with ease.
--- NOTE | 2021-02-26 16:45 | NUR ---
Called [facility] and spoke with MINE Delgadillo. Pt's last blood pressure medication was given yesterday, 02/25/21.
--- NOTE | 2021-02-26 17:00 | NUR ---
Ice pack applied to procedure site. Pt states this does give her relief.
--- NOTE | 2021-02-26 17:45 | NUR ---
Pt stated her mid back pain was 5/10. Before the procedure it was 10/10. Pt also complains of bilateral hip pain and rates the pain 7/10. Pt is moving around more with more ease prior to the procedure. Pt was encouraged to call radiology after 48-72 hours to report how she is doing. Pt and daughter aware.
--- NOTE | 2021-02-26 19:00 | NUR ---
Discharge instructions were reviewed with pt/daughter. Pt/daughter voice understanding. Blood pressure is within limits and no longer fluctuating. IV was discontinued with catheter tip intact, no phlebitis or infiltration. Pt was discharged with 1L of oxygen. MINE Carreon with [facility] stated earlier today on the phone that she has been on oxygen while staying there. Hernandez with [facility] transportation assisted pt back to [facility] with discharge papers in hand.
== END 2021-02-26 19:00 ==
LOC: COL.CAR 10:06
DX: S32.030A Wedge compression fracture of third lumbar vertebra, initial encounter for closed fracture (principal); S22.080A Wedge compression fracture of T11-T12 vertebra, initial encounter for closed fracture; S32.050G Wedge compression fracture of fifth lumbar vertebra, subsequent encounter for fracture with delayed healing; M80.00XA Age-related osteoporosis with current pathological fracture, unspecified site, initial encounter for fracture; I25.10 Atherosclerotic heart disease of native coronary artery without angina pectoris; I10 Essential (primary) hypertension; E11.9 Type 2 diabetes mellitus without complications; E78.00 Pure hypercholesterolemia, unspecified; I34.0 Nonrheumatic mitral (valve) insufficiency; M19.90 Unspecified osteoarthritis, unspecified site; G47.33 Obstructive sleep apnea (adult) (pediatric); Z85.820 Personal history of malignant melanoma of skin; Z79.01 Long term (current) use of anticoagulants; Z95.2 Presence of prosthetic heart valve; Z79.84 Long term (current) use of oral hypoglycemic drugs; Z79.899 Other long term (current) drug therapy; Z79.891 Long term (current) use of opiate analgesic; Z79.02 Long term (current) use of antithrombotics/antiplatelets; Z87.891 Personal history of nicotine dependence; Z90.710 Acquired absence of both cervix and uterus; Z99.89 Dependence on other enabling machines and devices; Z83.3 Family history of diabetes mellitus
CPT/HCPCS: C1713; J1200; J1644; J2250; J2704; J3010; J7120

== ENCOUNTER 2021-03-03 22:37 | Inpatient (IN) | payer MEDICARE, BC ==
[~2021-03-03] VITALS: Ht 157.5 cm; Wt 63.8 kg
[~2021-03-03 22:37] MED LIST changes: +COLACE 100100 MG/CAP PO; +DULCOLAX S10 MG/SUPP RC; +FENTANYL 25 MCG TD; +LOVENOX 8080 MG/0.8; +TYLENOL SU650 MG/SUP RC
[2021-03-03 23:19] LABS: BASO % 0.1 % (0.0-2.0); EOS # 0.1 (0.0-0.7); EOS % 0.8 % (0-4.0); GRAN # 5.9 (1.4-6.5); GRAN % 76.7 % (42.2-75.2); LYMPH # 0.8 (1.2-3.4); LYMPH % 10.9 % (20.0-51.0); MEAN CELL VOLUME 90 fl (80.0-100.0); MEAN CORPUSCULAR HGB CONC 32 g/dl (33.0-37.0); MEAN PLATELET VOLUME 10.2 fl (7.4-10.4); MONO # 0.9 (0.1-0.6); MONO % 11.2 % (1.7-9.3); PLATELET COUNT 311 K/mm3 (130-400); REDCELL DISTRIBUTION WIDTH-CV 15.7 % (11.5-14.5)
[2021-03-03 23:23] LABS: HEMATOCRIT 28.7 % (37.0-47.0); HEMOGLOBIN 9.2 g/dl (12.5-16.0); MEAN CORPUSCULAR HEMOGLOBIN 29 pg (27.0-31.0)
[2021-03-03 23:27] LABS: INR 4.1 (0.8-3.0)
[2021-03-03 23:42] LABS: ALBUMIN 3.4 gm/dL (3.4-4.8); BILIRUBIN,TOTAL 0.6 mg/dL (0.2-1.2); CALCIUM 9.7 mg/dL (8.4-10.2); CREATININE, serum 0.89 mg/dL (0.57-1.11); POTASSIUM 4.6 mmol/L (3.5-4.5); TOTAL PROTEIN 7.6 gm/dL (6.2-8.1)
[2021-03-03 23:49] LABS: TROPONIN-I 0.023 ng/mL (0.00-0.033)
[2021-03-04] VITALS (13 sets, daily range): BP systolic 102–187; BP diastolic 43–87; PULSE 67–99; TEMP 97.4–98.6
[2021-03-04] MEDS ORDERED: DULCOLAX S10 MG/SUPP RC (03:46)
[2021-03-04] MEDS ORDERED: TYLENOL SU650 MG/SUP RC (03:46)
[2021-03-04] MEDS ORDERED: FLEXERIL5 MG PO (03:47)
[2021-03-04] MEDS ORDERED: CYMBALTA 30MG30 MG PO (03:48)
[2021-03-04] MEDS ORDERED: DEBROX OT (03:50)
[2021-03-04] MEDS ORDERED: MIRALAX PA17 GM/Dose PO ×2 (03:51→04:56)
[2021-03-04] MEDS ORDERED: NORCO 325 MG-51 TAB PO (03:52)
[2021-03-04] MEDS ORDERED: PROBIOTIC BLEN1 EACH PO (04:47)
[2021-03-04] MEDS ORDERED: PREDNISONE20 MG PO (04:50)
[2021-03-04] MEDS ORDERED: TYLENOL 325MG325 MG PO (04:56)
[2021-03-04] MEDS ORDERED: ALMACONE 360 M360 ML PO (04:57)
[2021-03-04] MEDS ORDERED: NITROSTAT0.4 MG/TAB SL (04:58)
[2021-03-04] MEDS ORDERED: MIACALCIN NASA3.7 ML NS (05:07)
[2021-03-04] MEDS ORDERED: FENTANYL 12MCG TD (05:08)
[2021-03-04] MEDS ORDERED: LIDODERM 5% PATC1 EA TP (06:06)
[2021-03-04 06:44] LABS: BASO % 0.5 % (0.0-2.0); EOS # 0.3 (0.0-0.7); GRAN % 64.4 % (42.2-75.2); LYMPH # 0.9 (1.2-3.4); MEAN CELL VOLUME 90 fl (80.0-100.0); MEAN CORPUSCULAR HGB CONC 32 g/dl (33.0-37.0); MEAN PLATELET VOLUME 10.4 fl (7.4-10.4); MONO % 15.6 % (1.7-9.3); PLATELET COUNT 283 K/mm3 (130-400); RED BLOOD COUNT 3.06 M/mm3 (4.10-5.30); REDCELL DISTRIBUTION WIDTH-CV 15.7 % (11.5-14.5)
[2021-03-04 06:47] LABS: INR 4.5 (0.8-3.0)
[2021-03-04 06:49] LABS: HEMATOCRIT 27.5 % (37.0-47.0); HEMOGLOBIN 8.8 g/dl (12.5-16.0); MEAN CORPUSCULAR HEMOGLOBIN 29 pg (27.0-31.0)
[2021-03-04 06:50] LABS: PARTIAL THROMBOPLASTIN TIME 38.6 SECONDS (26.0-37.0)
[2021-03-04 06:52] LABS: PROTHROMBIN TIME 50.8 SECONDS (9.7-12.8)
[2021-03-04 07:43] LABS: CHOLESTEROL RISK RATIO 1.9
[2021-03-04 07:49] LABS: TROPONIN-I 6 HR POST INITIAL 0.01 ng/mL (0.00-0.033)
--- NOTE | 2021-03-04 08:17 | NUR ---
PT PLEASANT, AOX4, REPORTS PAIN IN BACK, LIDOCAINE PATCH APPLIED AND TYLENOL AND FLEXERIL GIVEN ALONG WITH OTHER SCHEDULED MEDICATIONS. BP ELEVATED, WILL REASSESS AFTER SCHEDULED MEDS TAKE EFFECT. ASSESSMENT PERFORMED, PT HAS FIRM ABD BUT HAVING LOOSE STOOL. CRIS WOLFE UPDATED ON PLAN SO FAR. NO OTHER NEEDS AT THIS TIME.
--- NOTE | 2021-03-04 12:48 | NUR ---
Initial visit; Patient and her daughter thanked Director Of Psychology for looking in on her and offering prayer and God's blessings. Director Of Psychology will continue to look in on Deedee.
--- NOTE | 2021-03-04 14:27 | NUR ---
MANUEL met with this patient while she was sitting in her room reading a magazine. Patient had a recent admission here for similar reasons and discharged to [facility] but is also a resident of [facility]. Patient is waiting to complete a stress test this afternoon but will return to [facility] when ready to discharge. PCP is Dr. Walker. Patient lives alone and her daughter, Dunia, is her nok at [phone]. MANUEL will continue to follow for d/c needs.
--- NOTE | 2021-03-04 14:45 | NUR ---
PT REPORTING "FEELING WEIRD", DENIES NUMBNESS AND TINGLING, PT REPORTED WANTING HER BS TAKEN, ONCE IT WAS NORMAL SHE SAID "I JUST WANT TO LAY DOWN AND CRY". PT THEN WENT ON TO EXPLAIN STRESS WITH PROCEDURE. PAIN MEDICATIONS GIVEN FOR BACK.
--- NOTE | 2021-03-04 14:52 | NUR ---
PT TAKEN DOWN FOR LEXISCAN
--- NOTE | 2021-03-04 17:29 | NUR ---
PT PLEASANT, REPORTS LACK OF SLEEP, PT AOX4 JUST VERY TIRED. PT STANDBY WITH WALKER. PT REPROTS BACK PAIN, NO OTHER NEEDS.
[2021-03-04 19:37] LABS: INR 5.1 (0.8-3.0)
--- NOTE | 2021-03-04 21:02 | NUR ---
PT RESTING IN BED. EVENING MEDICATIONS GIVEN. NS RUNNING THROUGH IV AT 30ML/HR. PT APPEARS DROWSY. EXPRESSES MODERATE PAIN, MEDICATION GIVEN. DENIES ANY NEEDS AT THIS TIME. WILL CONTINUE TO MONITOR.
[2021-03-05] VITALS (7 sets, daily range): BP systolic 118–185; BP diastolic 36–90; PULSE 69–83; TEMP 97.6–98.4
[2021-03-05 06:48] LABS: BASO # 0.1 (0.0-0.2); BASO % 0.6 % (0.0-2.0); EOS # 0.7 (0.0-0.7); EOS % 8.1 % (0-4.0); GRAN # 5.8 (1.4-6.5); GRAN % 72.3 % (42.2-75.2); HEMOGLOBIN 10.1 g/dl (12.5-16.0); LYMPH # 0.5 (1.2-3.4); LYMPH % 6.5 % (20.0-51.0); MEAN CELL VOLUME 92 fl (80.0-100.0); MEAN CORPUSCULAR HEMOGLOBIN 29 pg (27.0-31.0); MEAN CORPUSCULAR HGB CONC 32 g/dl (33.0-37.0); MEAN PLATELET VOLUME 10.5 fl (7.4-10.4); MONO % 12.1 % (1.7-9.3); PLATELET COUNT 322 K/mm3 (130-400); RED BLOOD COUNT 3.44 M/mm3 (4.10-5.30)
[2021-03-05 06:50] LABS: HEMATOCRIT 31.5 % (37.0-47.0)
[2021-03-05 07:00] LABS: INR 4.5 (0.8-3.0)
[2021-03-05 07:08] LABS: PROTHROMBIN TIME 50.1 SECONDS (9.7-12.8)
[2021-03-05 07:23] LABS: CALCIUM 9.4 mg/dL (8.4-10.2); CREATININE, serum 0.83 mg/dL (0.57-1.11); POTASSIUM 4.2 mmol/L (3.5-4.5)
--- NOTE | 2021-03-05 08:20 | NUR ---
PT PLEASANT, AOX4, REPORTS EXTREME PAIN IN BACK, PT GRIMACING AND CRYING OUT WITH MOVEMENT. FLEXERIL AND NORCO GIVEN WITH MORNING MEDICATIONS. NEW FENTANYL PATCH PLACED PER ORDER. BROUGHT VIDAL BLOUNT IN FOR VERIFICATION OF FENTANYL PATCH REMOVAL, UNABLE TO FIND OLD FENTANYL PATCH ON PT. BOTH CHECKED PT CHEST, BACK, ARMS, INSIDE OF GOWN, AND IN THE BED. FENTANYL PATCH VISUALIZED ON R CHEST YESTERDAY 03/04 DURING DAY SHIFT BUT UNABLE TO FIND AT THIS TIME. VITAL SIGNS REVIEWED AND UPDATED PT ON POSSIBLY HOLDING HEART CATH DUE TO HIGH INR. NO OTHER NEEDS AT THIS TIME.
--- NOTE | 2021-03-05 16:34 | NUR ---
ACCUCHECKS CHANGED TO ACHS PER EUGENIO VIEIRA
--- NOTE | 2021-03-05 17:38 | NUR ---
PT PLEASANT, AOX4, READJUSTED IN BED FREQUENTLY, HAS NOT REQUIRED PAIN MEDICATION SINCE THE AFTERNOON.
--- NOTE | 2021-03-05 18:07 | NUR ---
PT REPORTS CHOKING ON A PIECE OF CHICKEN AND FEELING IT STUCK IN HER THROAT. PT IS NOT HAVING LABORED BREATHING, O2 SAT IN HIGH 90'S, PT IS VOMITING, TRIED WASHING FOOD DOWN WITH FLUIDS AND WOULD THROW UP. ROSA MARIA BECKER NOTIFIED, NO NEW ORDERS AT THIS TIME
--- NOTE | 2021-03-05 18:16 | NUR ---
ROSA MARIA ASSESSING PT, PT NOW REPORTING THAT SHE HAS PASSED THE FOOD BOLUS AND NO LONGER FEELS THAT THE CHICKEN IS STUCK IN HER THROAT.
--- NOTE | 2021-03-05 22:41 | NUR ---
PT RESTING IN BED. EVENING MEDICATIONS GIVEN. DENIES ANY PAIN, STATES SHE ONLY EXPERIENCES IT IN HER LOWER BACK WHEN MOVING. DENIES ANY NEEDS. WILL CONTINUE TO MONITOR.
[2021-03-06 03:34] VITALS: BP 149/54; PULSE 66; TEMP 98.2
[2021-03-06 08:14] VITALS: BP 169/59; PULSE 73; TEMP 98.4
[2021-03-06 08:36] LABS: BASO % 0.5 % (0.0-2.0); EOS # 0.7 (0.0-0.7); EOS % 11.8 % (0-4.0); GRAN # 4.3 (1.4-6.5); GRAN % 70.2 % (42.2-75.2); HEMOGLOBIN 10.3 g/dl (12.5-16.0); LYMPH # 0.5 (1.2-3.4); MEAN CELL VOLUME 93 fl (80.0-100.0); MEAN CORPUSCULAR HEMOGLOBIN 29 pg (27.0-31.0); MEAN CORPUSCULAR HGB CONC 31 g/dl (33.0-37.0); MEAN PLATELET VOLUME 10.3 fl (7.4-10.4); MONO # 0.6 (0.1-0.6); MONO % 9.3 % (1.7-9.3); PLATELET COUNT 319 K/mm3 (130-400); RED BLOOD COUNT 3.58 M/mm3 (4.10-5.30); REDCELL DISTRIBUTION WIDTH-CV 16.3 % (11.5-14.5)
[2021-03-06 08:39] LABS: INR 3.3 (0.8-3.0); PROTHROMBIN TIME 36.8 SECONDS (9.7-12.8)
[2021-03-06 08:45] LABS: HEMATOCRIT 33.2 % (37.0-47.0)
[2021-03-06 09:06] LABS: CALCIUM 9.5 mg/dL (8.4-10.2); CREATININE, serum 0.89 mg/dL (0.57-1.11); POTASSIUM 3.8 mmol/L (3.5-4.5)
[2021-03-06 12:06] VITALS: BP 128/52; PULSE 72; TEMP 98.3
--- NOTE | 2021-03-06 16:11 | NUR ---
Analytical Sciences Director requested PT/OT orders from hospitalist. SW faxed clinical updates to Mikayla at [facility].
[2021-03-06 16:31] LABS: INR 3.3 (0.8-3.0)
[2021-03-06 17:01] VITALS: BP 129/89; PULSE 77; TEMP 98.2
--- NOTE | 2021-03-06 19:06 | NUR ---
REPORT GIVEN TO MINE MEYER
[2021-03-06 20:16] VITALS: BP 129/40; PULSE 73; TEMP 97.9
--- NOTE | 2021-03-06 22:20 | NUR ---
PT RESTING IN BED. EVENING MEDICATIONS GIVEN. PT DENIES BEING IN PAIN WHEN RESTING, EXPERIENCES SHARP PAIN IN HER BACK WITH MOVEMENT. REQUESTING A PAIN PILL TO PREVENT WAKING UP IN PAIN, PROVIDED. DENIES ANY OTHER NEEDS. WILL CONTINUE TO MONITOR.
[2021-03-07 00:13] VITALS: BP 161/58; PULSE 82; TEMP 98.4
[2021-03-07 04:28] VITALS: BP 153/48; PULSE 80; TEMP 97.6
--- NOTE | 2021-03-07 05:35 | NUR ---
PT HAD AN UNEVENTFUL NIGHT. DENIES ANY NEEDS.
[2021-03-07 06:54] LABS: BASO % 0.5 % (0.0-2.0); EOS # 0.6 (0.0-0.7); EOS % 11.2 % (0-4.0); GRAN # 3.6 (1.4-6.5); GRAN % 64.7 % (42.2-75.2); LYMPH # 0.7 (1.2-3.4); LYMPH % 12.5 % (20.0-51.0); MEAN CELL VOLUME 91 fl (80.0-100.0); MEAN CORPUSCULAR HGB CONC 32 g/dl (33.0-37.0); MEAN PLATELET VOLUME 9.8 fl (7.4-10.4); MONO # 0.6 (0.1-0.6); MONO % 10.7 % (1.7-9.3); PLATELET COUNT 290 K/mm3 (130-400); RED BLOOD COUNT 3.22 M/mm3 (4.10-5.30); REDCELL DISTRIBUTION WIDTH-CV 16.2 % (11.5-14.5)
[2021-03-07 06:58] LABS: HEMATOCRIT 29.2 % (37.0-47.0); HEMOGLOBIN 9.3 g/dl (12.5-16.0); MEAN CORPUSCULAR HEMOGLOBIN 29 pg (27.0-31.0)
[2021-03-07 06:59] LABS: INR 2.3 (0.8-3.0); PROTHROMBIN TIME 25.8 SECONDS (9.7-12.8)
[2021-03-07 07:29] LABS: CALCIUM 9.1 mg/dL (8.4-10.2); CREATININE, serum 0.8 mg/dL (0.57-1.11); POTASSIUM 3.7 mmol/L (3.5-4.5)
[2021-03-07 08:03] VITALS: BP 190/75; PULSE 88; TEMP 98.3
[2021-03-07 11:16] LABS: PARTIAL THROMBOPLASTIN TIME 34.2 SECONDS (26.0-37.0)
[2021-03-07 12:39] VITALS: BP 121/56; PULSE 77; TEMP 97.7
--- NOTE | 2021-03-07 14:03 | NUR ---
MANUEL faxed updated progress notes to [facility] as patient plans to return upon discharge.
[2021-03-07 17:02] VITALS: BP 153/63; PULSE 79; TEMP 97.5
[2021-03-07 20:41] VITALS: BP 146/44; PULSE 75; TEMP 97.7
--- NOTE | 2021-03-07 23:19 | NUR ---
ALERT AND OX4. DENIES SOA ,CHEST PAIN OR DIZZY. RATING BACK PAIN 11/15. PM MEDS GIVEN. HEP GTT RESTARTED AFTER 1 HR VERIFIED RATE. REDRAW HEP XA 02AM ORDER PLACED. CLAUDE FOR BACK PAIN. NPO AT MIDNIGHT. CALL LIGHT WI REACH.
--- NOTE | 2021-03-08 02:03 | NUR ---
HEPXA BEING DRAWN BY LAB
[2021-03-08 04:58] VITALS: BP 157/53; PULSE 77; TEMP 98.2
--- NOTE | 2021-03-08 05:45 | NUR ---
RESTED THROUGH THE NIGHT WITHOUT INCIDENT. NEEDS MET.
--- NOTE | 2021-03-08 07:02 | NUR ---
appears to be sleeping, bedside shift report received from MINE Ivan
--- NOTE | 2021-03-08 08:05 | NUR ---
awake and lab in to draw blood, assised her up to bathroom and ambulates with slow steady gait with use of walker, full assessment completed, see interventions for further info,
[2021-03-08 08:07] VITALS: BP 170/52; PULSE 83; TEMP 98.6
[2021-03-08 08:22] LABS: BASO % 0.6 % (0.0-2.0); EOS # 0.8 (0.0-0.7); EOS % 14.6 % (0-4.0); GRAN # 3.1 (1.4-6.5); GRAN % 59.7 % (42.2-75.2); LYMPH # 0.7 (1.2-3.4); LYMPH % 12.6 % (20.0-51.0); MEAN CELL VOLUME 90 fl (80.0-100.0); MEAN CORPUSCULAR HGB CONC 32 g/dl (33.0-37.0); MEAN PLATELET VOLUME 9.8 fl (7.4-10.4); MONO # 0.6 (0.1-0.6); MONO % 12.3 % (1.7-9.3); PLATELET COUNT 280 K/mm3 (130-400); REDCELL DISTRIBUTION WIDTH-CV 16.4 % (11.5-14.5)
[2021-03-08 08:29] LABS: HEMATOCRIT 28.9 % (37.0-47.0); HEMOGLOBIN 9.3 g/dl (12.5-16.0); INR 1.8 (0.8-3.0); MEAN CORPUSCULAR HEMOGLOBIN 29 pg (27.0-31.0); PROTHROMBIN TIME 20.4 SECONDS (9.7-12.8)
[2021-03-08 08:36] LABS: CREATININE, serum 0.81 mg/dL (0.57-1.11); POTASSIUM 3.8 mmol/L (3.5-4.5)
--- NOTE | 2021-03-08 08:59 | NUR ---
resting in bed, Heparin drip decreased to 550 units/hr, informed her that she would have her heart cath today and she would be the third one done, verbalizes understanding and has talked with her daughter
--- NOTE | 2021-03-08 09:26 | NUR ---
assisted up to bathroom and had bowel movement, am hygiene provided at this time, then back to bed and will rest
--- NOTE | 2021-03-08 10:15 | NUR ---
daughter in to visit, explained to patient and her daughter Dr Pleitez's nurse called to report they do not want to the the heart cath today due to her INR still being 1.8, both verbalize understanding but are disapponted she has to be here through the week-end. am meds given, instructed she can order food whenever she is ready
[2021-03-08 11:23] VITALS: BP 147/54; PULSE 79; TEMP 97.8
--- NOTE | 2021-03-08 12:25 | NUR ---
physical therapy was in and assisted her up to chair, she is now ready to go back to bed, assisted her back to bed, medicate with norco 5mg 1 tab for c/os back pain
--- NOTE | 2021-03-08 13:40 | NUR ---
Certified Optician faxed clinical updates to Mikayla at [facility] who advised they are good to accept patient upon discharge. Discharge Plan: [facility]
--- NOTE | 2021-03-08 15:00 | NUR ---
awake and resting in bed, heparin infusion adjusted
[2021-03-08 16:25] VITALS: BP 152/53; PULSE 72; TEMP 98.7
--- NOTE | 2021-03-08 16:32 | NUR ---
sitting up in chair talking on phone
--- NOTE | 2021-03-08 17:48 | NUR ---
sitting up in chair having supper
--- NOTE | 2021-03-08 18:07 | NUR ---
assisted back to bed from chair, is ready to rest
--- NOTE | 2021-03-08 18:40 | NUR ---
bedside shift report given to MINE Ivan
--- NOTE | 2021-03-08 18:47 | NUR ---
medicated with hydrocodone 5mg 2 tabs for c/os pain7/10
[2021-03-08 20:01] VITALS: BP 129/48; PULSE 81; TEMP 97.5
[2021-03-08 23:30] VITALS: BP 105/82; PULSE 64; TEMP 97.6
--- NOTE | 2021-03-09 03:06 | NUR ---
HEP XA 0.26 NO CHANGE WITH HEP GTT. RECHECK AT 0800- ORDER PLACED.
[2021-03-09 04:02] VITALS: BP 143/42; PULSE 73; TEMP 97.7
--- NOTE | 2021-03-09 05:00 | NUR ---
RESTED THOUGH THE NIGHT WITHOUT INCIDENT. NEEDS MET.
[2021-03-09 07:57] VITALS: BP 149/52; PULSE 78; TEMP 98
[2021-03-09 08:45] LABS: MEAN CELL VOLUME 90 fl (80.0-100.0); MEAN CORPUSCULAR HGB CONC 32 g/dl (33.0-37.0); PLATELET COUNT 285 K/mm3 (130-400); RED BLOOD COUNT 3.31 M/mm3 (4.10-5.30); REDCELL DISTRIBUTION WIDTH-CV 16.3 % (11.5-14.5)
[2021-03-09 08:47] LABS: HEMATOCRIT 29.9 % (37.0-47.0); HEMOGLOBIN 9.6 g/dl (12.5-16.0); MEAN CORPUSCULAR HEMOGLOBIN 29 pg (27.0-31.0)
[2021-03-09 08:49] LABS: INR 1.4 (0.8-3.0); PROTHROMBIN TIME 15.5 SECONDS (9.7-12.8)
[2021-03-09 08:56] LABS: CALCIUM 9.2 mg/dL (8.4-10.2); CREATININE, serum 0.77 mg/dL (0.57-1.11); POTASSIUM 3.8 mmol/L (3.5-4.5)
--- NOTE | 2021-03-09 09:10 | NUR ---
PT PLEASANT, AOX4, DENIES SOB, REPORTS WORSENING BACK PAIN, PT REPOSITIONED IN CHAIR FOR BREAKFAST, PAIN MEDICATION GIVEN WITH OTHER MORNING MEDS. PT THEN REPORTS WANTING A WALK, AMBULATED WELL WITH WALKER AND GAIT BELT. PT UP TO CHAIR AGAIN, KPAD BROUGHT IN FOR PT, HEPARIN INFUSING AND GOAL RATE, WILL RECHECK TOMORROW AT 0500. NO OTHER NEEDS
[2021-03-09 12:07] VITALS: BP 132/47; PULSE 69; TEMP 97.8
[2021-03-09 16:05] VITALS: BP 138/49; PULSE 80; TEMP 97.6
--- NOTE | 2021-03-09 17:59 | NUR ---
PT PLEASANT, UP IN THE CHAIR FOR DINNER, HEPARIN INFUSING, RECHECK HEPXA A IN AM DUE TO TWO CONSECUTIVE GOAL RESULTS. UA COLLECTED FOR L FLANK PAIN, HAD NOT MENTIONED FLANK PAIN SINCE AM. NO OTHER NEEDS
[2021-03-09 20:02] LABS: COLLECTION METHOD CATHETER
[2021-03-09 20:06] VITALS: BP 157/58; PULSE 76; TEMP 90
[2021-03-09 20:18] LABS: MUCOUS Present /lpf; PH 6 (5-8); SQUAMOUS EPITHELIAL 0-2 /hpf; URINE APPEARANCE Hazy; URINE BACTERIA Rare /hpf; URINE BILIRUBIN Negative (NEGATIVE); URINE BLOOD 1+ (NEGATIVE); URINE COLOR Yellow; URINE GLUCOSE Negative (NEGATIVE); URINE KETONE Negative (NEGATIVE); URINE LEUKOCYTE ESTERASE 1+ (NEGATIVE); URINE NITRATE Negative (NEGATIVE); URINE PROTEIN(semi-quant) Negative (NEGATIVE); URINE RBC 0-2 /hpf
--- NOTE | 2021-03-09 21:05 | NUR ---
Patient assessed around 1950. Alert and oriented x 4, and able to make needs known. Reported level 9 pain to back, and given PRN [place] as requested for pain. Peripheral INT to left AC, IV to left forearm, with Heparin drip running per orders. HepXa has been goal, and will recheck in the morning. Denies chest pain and discomfort. Telemetry in place: normal sinus. Voices no questions, needs, or concerns at this time. Resting in bed with call light within reach. High fall risk precautions in place.
[2021-03-10 00:45] VITALS: BP 128/40; PULSE 75; TEMP 98.1
[2021-03-10 04:04] VITALS: BP 136/43; PULSE 70; TEMP 97.6
--- NOTE | 2021-03-10 05:29 | NUR ---
Patient has been resting in bed with call light within reach. Took PRN [place] as beginning of shift. Has voiced no further complaints this shift. Continues on Heparin drip per orders. Awaiting morning labs for HepXa.
--- NOTE | 2021-03-10 06:13 | NUR ---
Patient assisted to bathroom and complaining of left flank pain. Given PRN [place] as requested for pain.
--- NOTE | 2021-03-10 08:00 | NUR ---
Patient sitting up in the recliner, A&Ox4. VSS. IV CDI, fluids infusing. Reporting pain in left hip r/t sitting in the recliner. Nurse assisted the patient to the bed with 1xassist and reposition for comfort. Call light within reach
[2021-03-10 08:16] LABS: MEAN CELL VOLUME 91 fl (80.0-100.0); MEAN CORPUSCULAR HGB CONC 32 g/dl (33.0-37.0); MEAN PLATELET VOLUME 9.9 fl (7.4-10.4); PLATELET COUNT 245 K/mm3 (130-400); RED BLOOD COUNT 3.04 M/mm3 (4.10-5.30); REDCELL DISTRIBUTION WIDTH-CV 16.3 % (11.5-14.5)
[2021-03-10 08:19] LABS: HEMATOCRIT 27.7 % (37.0-47.0); HEMOGLOBIN 8.9 g/dl (12.5-16.0); MEAN CORPUSCULAR HEMOGLOBIN 29 pg (27.0-31.0)
[2021-03-10 08:26] LABS: INR 1.3 (0.8-3.0); PROTHROMBIN TIME 13.9 SECONDS (9.7-12.8)
[2021-03-10 08:30] VITALS: BP 161/71; PULSE 87; TEMP 98.1
[2021-03-10 09:14] LABS: CALCIUM 9.3 mg/dL (8.4-10.2); CREATININE, serum 0.79 mg/dL (0.57-1.11)
[2021-03-10 12:35] VITALS: BP 150/93; PULSE 75; TEMP 97.8
[2021-03-10 17:25] VITALS: BP 159/52; PULSE 92; TEMP 98.5
--- NOTE | 2021-03-10 18:09 | NUR ---
Patient had an uneventful day, reported pain in left flank that is unrelieved by pain medication and repositioning. Doctor aware. A&Ox4. VSS. IV CDI. Patient NPO after midnight for a procedure. Patient verbalized an understanding. No further needs expressed. Call light within reach
[2021-03-10 20:19] VITALS: BP 153/47; PULSE 76; TEMP 98.3
--- NOTE | 2021-03-10 21:53 | NUR ---
Received 2 [place] as bedtime as requested for back pain. Continues on Heparin drip per orders. Patient voices no questions, needs, or concerns at this time. Resting in bed with call light within reach.
[2021-03-11] VITALS (14 sets, daily range): BP systolic 119–186; BP diastolic 44–77; PULSE 72–90; TEMP 97.5–98.4
--- NOTE | 2021-03-11 06:03 | NUR ---
Patient received PRN pain medications once this shift as requested. Heparin dip running at 600 units/hr (6 ml/hr) per protocol. Has been NPO for heart cath since midnight. Voices no questions, needs, or concerns at this time. Resting in bed with call light within reach.
[2021-03-11 06:50] LABS: INR 1.2 (0.8-3.0); MEAN CELL VOLUME 92 fl (80.0-100.0); MEAN CORPUSCULAR HGB CONC 31 g/dl (33.0-37.0); MEAN PLATELET VOLUME 10.1 fl (7.4-10.4); PLATELET COUNT 256 K/mm3 (130-400); PROTHROMBIN TIME 12.8 SECONDS (9.7-12.8); RED BLOOD COUNT 3.21 M/mm3 (4.10-5.30); REDCELL DISTRIBUTION WIDTH-CV 16.3 % (11.5-14.5)
[2021-03-11 06:52] LABS: HEMATOCRIT 29.6 % (37.0-47.0); HEMOGLOBIN 9.3 g/dl (12.5-16.0); MEAN CORPUSCULAR HEMOGLOBIN 29 pg (27.0-31.0)
[2021-03-11 07:09] LABS: CALCIUM 9.7 mg/dL (8.4-10.2); CREATININE, serum 0.82 mg/dL (0.57-1.11)
--- NOTE | 2021-03-11 08:45 | NUR ---
PT TAKEN DOWN FOR HEART CATH. / NS HUNG
--- NOTE | 2021-03-11 09:13 | NUR ---
SEE MERGE DOCUMENTATION FOR MEDICATION ADMINISTRATION TIMES AND INTRA/POST PROCEDURE SEDATION ASSESSMENTS.
--- NOTE | 2021-03-11 09:55 | NUR ---
PT RETURNED TO FLOOR, ON 2L NC, REPORTING PAIN IN BACK AND L HIP, WILL GIVE PO MEDS, R RADIAL SITE WITH TR BAND, SITE HAS SMALL AMOUNT OF BRUISING SOFT TO PALPATION, POST OP VITALS OBTAINED, DR. HAIRSTON ARRIVED TO TALK ABOUT HIP INJECTION
--- NOTE | 2021-03-11 12:36 | NUR ---
PT C/O STABBING PAIN IN R RADIAL SITE, NO NEW BRUISING NOTED, BRUISING PRESENT DISTAL TO SITE THAT WAS PRESENT BEFORE CATH. SITE SOFT TO PALPATION, NO HARDNESS NOTED. PT HAS BRUISING TO R THUMB THAT WAS PRESENT BEFORE CATH AND REPORTS PAIN THERE WELL BUT NO HARDNESS NOTED. FINGERS DISTAL TO SITE WARM AND BLANCHABLE. DR. VILCHIS NOTIFIED AND ORDERD TO ALTERNATE HOT AND COLD THERAPY AND TO START DEFLATING BAND SINCE DUE FOR THIS. 2ML OF AIR REMOVED AT THIS TIME AND PT REPORTING LESSENING OF STABBING SENSATION, ICE APPLIED TO SITE. NO OOZING FROM CATH SITE AFTER REMOVAL OF AIR.
--- NOTE | 2021-03-11 12:47 | NUR ---
2 MORE ML OF AIR REMOVED, PT REPORTS LESSENING OF PAIN, ICE APPLIED, NO OOZING OR MORE BRUSING NOTED TO SITE.
--- NOTE | 2021-03-11 13:43 | NUR ---
3 more ml removed from band, pt sitting at 87% on 2l. with deep breaths she comes up to 98%. 3ml left in band
--- NOTE | 2021-03-11 13:59 | NUR ---
BAND FULLY DEFLATED BUT LEFT ON WRIST. PT DENIES PAIN AT SITE, BRUISED AREAS SOFT AND NON TENDER. NO OTHER NEEDS
--- NOTE | 2021-03-11 15:07 | NUR ---
MANUEL faxed updates to Mikayla at [facility]. *Discharge plan: [facility]*
--- NOTE | 2021-03-11 17:40 | NUR ---
PT UNDERWENT HEART CATH THIS MORNING. RIGHT VEIN ARTERY COMPLETELY OCCLUDED. PT TOLERATED PROCEDURE WELL. BAND COMPRESSION WAS PLACED ON RIGHT RADIAL WRIST. BAND DEFLATED AND REMOVED, NO SIGNS OF BLEEDING. PT HAD BILATERAL HIP INJECTIONS IN EARLY AFTERNOON. PT REPORTED BEING SORE, BUT NOT IN PAIN. PT RESTING COMFORTABLY AND DENIES ANY PAIN.
--- NOTE | 2021-03-11 20:42 | NUR ---
Patient assessed at this time. Complained of pain to left hip and given PRN [place] as requested for pain. Peripheral INT to left AC and left wrist. Right readial heart cath site with bruising, no hematoma to area, bandaid CDI. Telemetry in place. Voices no questions, needs, or concerns at this time. Resting in bed with call light within reach.
[2021-03-12 04:40] VITALS: BP 169/67; PULSE 86; TEMP 97.9
--- NOTE | 2021-03-12 05:42 | NUR ---
Patient has been resting in bed with call light within reach. Received PRN [place] at bedtime. No further complaints of pain or discomfort at this time. Voices no questions, needs, or concerns at this time.
--- NOTE | 2021-03-12 07:17 | NUR ---
REPORT RECEIVED FROM MINE DAVISON. PT ASLEEP IN BED. BREATHING REGULAR, UNLABORED. CALL DA SILVA IN REACH
[2021-03-12 07:47] LABS: CALCIUM 10.1 mg/dL (8.4-10.2); CREATININE, serum 0.79 mg/dL (0.57-1.11); POTASSIUM 4.4 mmol/L (3.5-4.5)
[2021-03-12 07:48] LABS: MEAN CELL VOLUME 89 fl (80.0-100.0); MEAN CORPUSCULAR HGB CONC 32 g/dl (33.0-37.0); MEAN PLATELET VOLUME 10.1 fl (7.4-10.4); PLATELET COUNT 265 K/mm3 (130-400); REDCELL DISTRIBUTION WIDTH-CV 15.9 % (11.5-14.5)
[2021-03-12 07:53] LABS: HEMATOCRIT 28.5 % (37.0-47.0); HEMOGLOBIN 9.2 g/dl (12.5-16.0); MEAN CORPUSCULAR HEMOGLOBIN 29 pg (27.0-31.0)
[2021-03-12 08:00] VITALS: BP 176/78; PULSE 87; TEMP 98.6
[2021-03-12 08:03] LABS: INR 1.2 (0.8-3.0); PROTHROMBIN TIME 13.2 SECONDS (9.7-12.8)
[2021-03-12 08:07] LABS: PARTIAL THROMBOPLASTIN TIME 26.5 SECONDS (26.0-37.0)
--- NOTE | 2021-03-12 08:41 | NUR ---
HEPARIN DRIP STARTED ON PT. RUNNING 12.5ML/HR
[2021-03-12 08:50] LABS: ANISOCYTOSIS 1+; BAND 4 % (0-10); LYMPHOCYTE 8 % (20.0-51.0); NEUTROPHILS 80 % (42.0-75.2); PLATELET ESTIMATE NORMAL (NORMAL)
--- NOTE | 2021-03-12 10:27 | NUR ---
REVIEWED STUDENT SHIFT ASSESSMENT. I AGREE WITH HER ASSESSMENT, EXCEPT FOR THESE CHANGES. BREATH SOUNDS, CLEAR ALL DOUGLAS; ABD FLAT, SOFT; L HAND IV AND L AC IV CLEAN, DRY, INTACT, NO SIGNS OF INFECTION/INFILTRATION
[2021-03-12 11:18] VITALS: BP 146/57; PULSE 88; TEMP 98.6
--- NOTE | 2021-03-12 14:31 | NUR ---
Solutions Analyst faxed clinical updates to Mikayla at [facility].
--- NOTE | 2021-03-12 14:55 | NUR ---
HEP XA AT 1.52. HEPARIN DRIP STOPPED FOR 2 HRS PER POLICY. WILL HAVE PTT AND HEP XA LABS DRAWN AGAIN IN 2 HRS
[2021-03-12 17:08] VITALS: BP 158/61; PULSE 84; TEMP 97.8
[2021-03-12 17:24] LABS: PARTIAL THROMBOPLASTIN TIME 88.7 SECONDS (26.0-37.0)
--- NOTE | 2021-03-12 17:30 | NUR ---
PER PT LABS, HEPARIN DECREASED BY 3ML/HR AND RESTARTED AT 9.5ML/HR
--- NOTE | 2021-03-12 18:33 | NUR ---
PT HAD UNEVENTFUL SHIFT. HEPARIN DRIP RUNNING. DENIES PAIN. NO NEEDS AT THIS TIME. CALL DA SILVA IN REACH
[2021-03-12 19:12] VITALS: BP 139/54; PULSE 84; TEMP 98
--- NOTE | 2021-03-12 20:34 | NUR ---
Patient assessed. Denies pain and discomfort at this time. Continues on Heparin drip at 9.5 ml/hr, or 950 units/hr. Patient's HepXa will be rechecked at 2330. Given Coumadin per orders. Voices no questions, needs, or concerns at this time. Resting in bed with call light within reach.
[2021-03-12 23:52] VITALS: BP 155/59; PULSE 74; TEMP 97.6
--- NOTE | 2021-03-13 00:40 | NUR ---
HepXa back at .73. Decreased heparin drip from 950 units/hr (9.5 ml/hr) to 850 units/hr (8.5 mls/hr) per protocol. Will recheck at 0630.
[2021-03-13 03:56] VITALS: BP 166/65; PULSE 79; TEMP 97.7
--- NOTE | 2021-03-13 06:01 | NUR ---
Patient has denied pain and discomfort this shift. Remains on Heparin drip per orders. Awaiting results of HepXa scheduled for 629. Voices no questions, needs, or concerns at this time. Resting in bed with call light within reach.
[2021-03-13 07:12] LABS: GRAN # 5.8 K/mm3 (1.4-6.5); GRAN % 85.8 % (42.2-75.2); LYMPH # 0.5 K/mm3 (1.2-3.4); LYMPH % 6.9 % (20.0-51.0); MEAN CELL VOLUME 89 fl (80.0-100.0); MEAN CORPUSCULAR HGB CONC 32 g/dl (33.0-37.0); MEAN PLATELET VOLUME 10.4 fl (7.4-10.4); MONO # 0.5 K/mm3 (0.1-0.6); MONO % 6.9 % (1.7-9.3); PLATELET COUNT 248 K/mm3 (130-400); RED BLOOD COUNT 3.08 M/mm3 (4.10-5.30); REDCELL DISTRIBUTION WIDTH-CV 16.3 % (11.5-14.5)
[2021-03-13 07:14] LABS: HEMATOCRIT 27.5 % (37.0-47.0); HEMOGLOBIN 8.9 g/dl (12.5-16.0); MEAN CORPUSCULAR HEMOGLOBIN 29 pg (27.0-31.0)
[2021-03-13 07:25] LABS: CALCIUM 9.8 mg/dL (8.4-10.2); CREATININE, serum 0.8 mg/dL (0.57-1.11); POTASSIUM 4.4 mmol/L (3.5-4.5)
[2021-03-13 07:27] VITALS: BP 178/80; PULSE 70; TEMP 99
--- NOTE | 2021-03-13 07:31 | NUR ---
New result of heparin anti-xa critical at 1.0. EUGENIO Lopez notified on the telephone. Jessica requesting for the protocol to be followed.
[2021-03-13 07:48] LABS: INR 1.9 (0.8-3.0); PROTHROMBIN TIME 21.2 SECONDS (9.7-12.8)
--- NOTE | 2021-03-13 07:52 | NUR ---
Heparin drip stopped per protocol. Plan to stop for one hour and recheck anti-axa level.
[2021-03-13 09:05] VITALS: BP 137/47; PULSE 86
[2021-03-13 11:08] VITALS: BP 143/56; PULSE 67; TEMP 98.8
--- NOTE | 2021-03-13 13:53 | NUR ---
Bell Cleaner faxed clinical updates to Mikayla at [facility]. SW met with patient to follow up. Patient confirmed she is still agreeable to discharge to [facility] upon discharge. Patient reports she has an Independent Living apartment at [facility], however has been considering moving to the assisted living side for a short time. Discharge Plan: [facility]
[2021-03-13 16:28] VITALS: BP 159/55; PULSE 76; TEMP 98.3
[2021-03-13 20:00] VITALS: BP 153/77; PULSE 81; TEMP 98
--- NOTE | 2021-03-13 22:46 | NUR ---
HEPARIN XA WITHIN TARGET RANGE, THIS IS SECOND LAB VALUE IN TARGET RANGE. NO CHANGE MADE TO HEP GTT. NEXT LAB SCHEDULED FOR 0500 03/14/21.
--- NOTE | 2021-03-13 22:47 | NUR ---
PT ALERT AND ORIENTED IN ROOM. PT ABLE TO EXPRESS NEEDS PT LUNGS CLEAR UPON ASUCULTATION. PT HAS SOME GENERALIZED BRUISING FROM PREVIOUS IV STICKS ON UPPER ARMS BILATERALLY. PT HAS 1+ PULSES PALPATED IN POSTERIOR TIBIAL PULSES. RADIAL AND DORSALIS PEDIS PULSES 2+. CAP REFILL <3S. PT EXPRESSES WISHES TO SLEEP TONIGHT, DID NOT GET MUCH SLEEP NIGHT PRIOR. PT CALL LIGHT WITHIN REACH, NO OTHER NEEDS AT THIS TIME.
[2021-03-14] VITALS (7 sets, daily range): BP systolic 138–165; BP diastolic 53–66; PULSE 57–77; TEMP 97.3–98.2
--- NOTE | 2021-03-14 04:59 | NUR ---
PT CONTINUING ON PLAN OF CARE. PT HEPARIN GTT REACHED TARGET LEVEL, NEW LAB TO BE DRAWN THIS AM. PT ABLE TO SLEEP THIS SHIFT, STATED DURING ASSESSMENT NOT BEING ABLE TO SLEEP MUCH NIGHT PRIOR. PT VITAL SIGNS REMAINED STABLE THIS SHIFT. PT FREE FROM INJURY.
--- NOTE | 2021-03-14 06:55 | NUR ---
Pt. progressing w/ plan of care. Pt. resting in bed, awake. Student nurse Sandra to help w/ care today in addition to this va underwriter. Call light and belongings in reach, needs addressed.
--- NOTE | 2021-03-14 08:30 | NUR ---
Pt. progressing w/ plan of care. Pt. OOB to bathroom and moved her bowels. Pt. reports / pain to lower back, requesting tylenol to be given w/ AM meds. Heparin xa level therapeutic at this time, this RN place a new order per protocol for new level to be drawn 03/14/21 at 0710. Pt. denies needs, call light and belongings in reach.
[2021-03-14 09:20] LABS: PROTHROMBIN TIME 22.3 SECONDS (9.7-12.8)
--- NOTE | 2021-03-14 11:24 | NUR ---
Branding Specialist collaborated with Hospitalist who advised patient is not ready for discharge today. MANUEL faxed clinical updates to Mikayla at [facility] and will continue to follow. Discharge Plan: [facility]
--- NOTE | 2021-03-14 14:30 | NUR ---
Primary nurse was assisted with [phone] patient care by [employer] student Sandra Helm and [employer] instructor Barbara Lacey MSN, RN
--- NOTE | 2021-03-14 20:30 | NUR ---
Initial shift assessment done- denies pain, VSS, denies SOB, Tele on, IV with heparin drip at 6cc/hr{600units/hr},, next hepxa in the AM, will get 3 mg of Coumadin tonight, checking INR in the AM also. Has been in the chair- now up to bathroom with walker, then back to bed for the night. No other requests.
[2021-03-15 02:57] VITALS: BP 153/43; PULSE 59; TEMP 98.3
--- NOTE | 2021-03-15 05:09 | NUR ---
Quiet night-- has slept well throughout the night- heparin drip continues at 6cc/hr. VSS
[2021-03-15 06:35] LABS: EOS % 0.2 % (0-4.0); GRAN # 3.6 K/mm3 (1.4-6.5); GRAN % 75.2 % (42.2-75.2); LYMPH # 0.6 K/mm3 (1.2-3.4); LYMPH % 12.2 % (20.0-51.0); MEAN CELL VOLUME 89 fl (80.0-100.0); MEAN CORPUSCULAR HGB CONC 32 g/dl (33.0-37.0); MEAN PLATELET VOLUME 10.3 fl (7.4-10.4); MONO # 0.6 K/mm3 (0.1-0.6); MONO % 12.2 % (1.7-9.3); PLATELET COUNT 260 K/mm3 (130-400); RED BLOOD COUNT 3.37 M/mm3 (4.10-5.30); REDCELL DISTRIBUTION WIDTH-CV 16.3 % (11.5-14.5)
[2021-03-15 06:41] LABS: INR 3.1 (0.8-3.0); PROTHROMBIN TIME 34.2 SECONDS (9.7-12.8)
[2021-03-15 06:49] LABS: CALCIUM 9.7 mg/dL (8.4-10.2); CREATININE, serum 0.81 mg/dL (0.57-1.11); POTASSIUM 4.4 mmol/L (3.5-4.5)
[2021-03-15 06:53] LABS: HEMATOCRIT 30.1 % (37.0-47.0); HEMOGLOBIN 9.7 g/dl (12.5-16.0); MEAN CORPUSCULAR HEMOGLOBIN 29 pg (27.0-31.0)
[2021-03-15 07:19] VITALS: BP 146/68; PULSE 69; TEMP 97.6
[2021-03-15 08:03] VITALS: BP 149/50; PULSE 73; TEMP 98.3
[2021-03-15] MEDS ORDERED: PRINIVIL20 MG PO (08:52)
[2021-03-15] MEDS ORDERED: FENTANYL 12MCG TD (08:57)
[2021-03-15 10:01] VITALS: BP 149/50; PULSE 73; TEMP 98.3
--- NOTE | 2021-03-15 10:58 | NUR ---
Chef Broiler Or Fry attended clinical rounds with the team and patient is ready for discharge today. SW met with patient who is agreeable with discharge to [facility]. MANUEL reviewed IM form with patient who verbalized understanding then provided signature. MANUEL placed form in chart and provided copy to patient. MANUEL collaborated with Mikayla to set transport time for 1100. MANEUL contacted patient's daughter, Dunia and left a message. MANUEL faxed discharge orders and negative COVID results to Mikayla at [facility].
--- NOTE | 2021-03-15 11:07 | NUR ---
IV to left hand removed by nursing agency manager w/tip intact. Discharge paperwork sent w/[facility] transport. Pt escorted out via wheelchair w/all belongings. Attempted to call report at this time w/o answer. Will try again in 10 minutes.
--- NOTE | 2021-03-15 11:25 | NUR ---
Attempted to call report again at this time w/ no answer. body and fender worker Meseret notified and will reach out to [facility].
--- NOTE | 2021-03-15 11:57 | NUR ---
Notified by community mental health social worker Meseret that [facility] will be calling to receive report when they have a chance. Awaiting call.
--- NOTE | 2021-03-15 12:15 | NUR ---
Report given to nurse at [facility].
--- NOTE | 2021-03-15 14:46 | NUR ---
Primary nurse was assisted with [phone] patient care by [employer] student Sandra Helm and [employer] instructor Barbara Lacey MSN, RN
== END 2021-03-15 11:00 | DRG 287 ==
LOC: COL.ER 22:37 → MEDICAL 03-04 00:22
PROVIDERS: Emergency Medicine; Family Medicine; Nurse Practitioner Family; Physician Assistant; Student in an Organized Health Care Education/Training Program; ADMIT Internal Medicine
PROC: 4A023N7 Measurement of Cardiac Sampling and Pressure, Left Heart, Percutaneous Approach (ICD-10-PCS; principal; 2021-03-11)
PROC: B2111ZZ Fluoroscopy of Multiple Coronary Arteries using Low Osmolar Contrast (ICD-10-PCS; 2021-03-11)
DX: I25.110 Atherosclerotic heart disease of native coronary artery with unstable angina pectoris (principal); E44.0 Moderate protein-calorie malnutrition; I25.82 Chronic total occlusion of coronary artery; E11.9 Type 2 diabetes mellitus without complications; I25.2 Old myocardial infarction; I08.3 Combined rheumatic disorders of mitral, aortic and tricuspid valves; Z20.822 Contact with and (suspected) exposure to COVID-19; Z66 Do not resuscitate; I10 Essential (primary) hypertension; M48.56XD Collapsed vertebra, not elsewhere classified, lumbar region, subsequent encounter for fracture with routine healing; G47.30 Sleep apnea, unspecified; D64.9 Anemia, unspecified; M19.90 Unspecified osteoarthritis, unspecified site; H61.20 Impacted cerumen, unspecified ear; E78.5 Hyperlipidemia, unspecified; Z79.01 Long term (current) use of anticoagulants; Z79.52 Long term (current) use of systemic steroids; Z79.82 Long term (current) use of aspirin; Z79.891 Long term (current) use of opiate analgesic; Z95.5 Presence of coronary angioplasty implant and graft; Z95.2 Presence of prosthetic heart valve; Z68.25 Body mass index [BMI] 25.0-25.9, adult; Z90.710 Acquired absence of both cervix and uterus; Z87.891 Personal history of nicotine dependence; Z88.8 Allergy status to other drugs, medicaments and biological substances
CPT/HCPCS: OP; 99231-AI; 99232-AI; 99233-AI; 99239; A9500; G0378; J0696; J1644; J1815; J2250; J2785; J3010; J3301; J7030; Q9967

== ENCOUNTER 2021-03-18 03:59 | Observation (INO) | payer MEDICARE, BC ==
[~2021-03-18] VITALS: Ht 157.5 cm; Wt 59.1 kg
[~2021-03-18 03:59] MED LIST changes: +ALMACONE 360 M360 ML PO; +CYMBALTA 30MG30 MG PO; +DEBROX OT; +LIDODERM 5% PATC1 EA TP; +MIACALCIN NASA3.7 ML NS; +PREDNISONE20 MG PO; +PRINIVIL20 MG PO; +PROBIOTIC BLEN1 EACH PO; +TYLENOL 325MG325 MG PO
[2021-03-18 04:17] LABS: BASO % 0.2 % (0.0-2.0); EOS # 0.3 K/mm3 (0.0-0.7); EOS % 4.8 % (0-4.0); GRAN # 4.1 K/mm3 (1.4-6.5); GRAN % 71.5 % (42.2-75.2); HEMOGLOBIN 10.3 g/dl (12.5-16.0); LYMPH # 0.7 K/mm3 (1.2-3.4); LYMPH % 12.2 % (20.0-51.0); MEAN CELL VOLUME 91 fl (80.0-100.0); MEAN CORPUSCULAR HEMOGLOBIN 28 pg (27.0-31.0); MEAN CORPUSCULAR HGB CONC 31 g/dl (33.0-37.0); MONO # 0.6 K/mm3 (0.1-0.6); MONO % 10.8 % (1.7-9.3); PLATELET COUNT 254 K/mm3 (130-400); RED BLOOD COUNT 3.63 M/mm3 (4.10-5.30); REDCELL DISTRIBUTION WIDTH-CV 16.2 % (11.5-14.5)
[2021-03-18 04:19] LABS: HEMATOCRIT 32.9 % (37.0-47.0)
[2021-03-18 04:32] LABS: INR 2.5 (0.8-3.0); PROTHROMBIN TIME 27.9 SECONDS (9.7-12.8)
[2021-03-18 05:11] LABS: ALBUMIN 3.3 gm/dL (3.4-4.8); CALCIUM 10.1 mg/dL (8.4-10.2); CREATININE, serum 1.04 mg/dL (0.57-1.11); POTASSIUM 4.7 mmol/L (3.5-4.5)
[2021-03-18 05:17] LABS: TROPONIN-I 0.016 ng/mL (0.00-0.033)
[2021-03-18 08:07] VITALS: BP 159/51; PULSE 67; TEMP 97.9
[2021-03-18] MEDS ORDERED: IMODIUM 2MG CAPS2 MG PO (08:35)
[2021-03-18] MEDS ORDERED: HYDROCORTISONE30 G3 TP (08:41)
[2021-03-18] MEDS ORDERED: NORCO 325 MG-51 TAB PO (08:44)
[2021-03-18] MEDS ORDERED: ACIDOPHILIS PO (08:54)
--- NOTE | 2021-03-18 09:38 | NUR ---
Initial visit; Patient and her daughter thanked Utility Bag Assembler for offering empathy and prayer for discernment and healing of her health issues that brought her here. Utility Bag Assembler will follow up while patient is here at [place]/[facility] [place].
--- NOTE | 2021-03-18 10:17 | NUR ---
ATTEMPTED TO ASSIST PT UP TO EDGE OF BED TO USE COMMODE , PT C/O "I THINK I GOT ANOTHER COMPRESSION FRACTURE IN MY BACK, JUST LEAVE ME HERE". PT IN BED WITH LEGS IN BED. 2 PEOPLE HELPED GET HER REPOSITIONED. NORCO GIVEN FOR PAIN. CALLED RUBEN AND JOSE TO DO MED REC. RUBEN HAS BEEN FILLING MEDICATIONS SINCE MOVED TO "A-BED" AT [facility]. ACCORDING TO TRA'S PT HAS BEEN ON 3MG OF COUMADIN WITH FREQUENT INR CHECKS SINCE DC FROM HOSPITAL 03/15. DUE FOR 3MG COUMADIN TONIGHT WITH INR REPEAT IN AM OF 03/19/21. PHYSICIAN AND PHARMACIST MADE AWARE.
[2021-03-18 12:05] VITALS: BP 114/45; PULSE 70; TEMP 97.3
--- NOTE | 2021-03-18 14:38 | NUR ---
[facility]; Commercial Lines Underwriter faxed updated clinicals to [facility]
[2021-03-18 16:38] VITALS: BP 148/52; PULSE 73; TEMP 97.5
--- NOTE | 2021-03-18 17:40 | NUR ---
PT HAS BEEN LYING IN BED DURING SHIFT, PLEASANT AND COOPERATIVE THROUGHOUT SHIFT. TOOK ALL MEDS PRESCRIBED AND INVOLVED IN CARE. PT INFORMED OF LIMITED OPTIONS FOR INTERVENTIONS, MAY DISCHARGE TO [facility] FACILITY TOMORROW. PT DENIES ANY CHEST PAIN, JUST BACK PAIN. PT SITTING IN BED, CALL LIGHT IN REACH, NO COMPLAINTS AT THIS TIME
[2021-03-18 20:00] VITALS: BP 102/35; PULSE 73; TEMP 98.1
--- NOTE | 2021-03-18 20:15 | NUR ---
Initial shift assessment done- resting very well at this time-- states the [place] given around 6 pm was very effective. Tele on, SR, Alert/oriented, no requests, using call light appropriately.
[2021-03-18 23:47] VITALS: BP 121/36; PULSE 69; TEMP 97.7
[2021-03-19 03:25] VITALS: BP 152/50; PULSE 67; TEMP 99
--- NOTE | 2021-03-19 05:36 | NUR ---
Very quiet night- slept all night- denies need for pain meds-
[2021-03-19 07:23] LABS: HEMOGLOBIN 10.9 g/dl (12.5-16.0); MEAN CELL VOLUME 91 fl (80.0-100.0); MEAN CORPUSCULAR HEMOGLOBIN 29 pg (27.0-31.0); MEAN CORPUSCULAR HGB CONC 32 g/dl (33.0-37.0); MEAN PLATELET VOLUME 10.3 fl (7.4-10.4); PLATELET COUNT 241 K/mm3 (130-400); RED BLOOD COUNT 3.78 M/mm3 (4.10-5.30); REDCELL DISTRIBUTION WIDTH-CV 16.2 % (11.5-14.5)
[2021-03-19 07:27] LABS: HEMATOCRIT 34.5 % (37.0-47.0)
[2021-03-19 07:30] LABS: INR 3.2 (0.8-3.0); PROTHROMBIN TIME 35.9 SECONDS (9.7-12.8)
[2021-03-19 07:39] VITALS: BP 155/76; PULSE 83; TEMP 97.6
[2021-03-19 07:42] LABS: TROPONIN-I 0.033 ng/mL (0.00-0.033)
[2021-03-19] MEDS ORDERED: RANEXA 500MG T500 MG PO (08:00)
[2021-03-19] MEDS ORDERED: COREG12.5 MG PO (08:02)
[2021-03-19] MEDS ORDERED: FENTANYL 25 MCG TD (09:24)
[2021-03-19] MEDS ORDERED: NORCO 325 MG-51 TAB PO (10:54)
[2021-03-19 12:17] VITALS: BP 121/59; PULSE 72; TEMP 98
[2021-03-19 12:21] LABS: CALCIUM 10.2 mg/dL (8.4-10.2); CREATININE, serum 1.3 mg/dL (0.57-1.11); POTASSIUM 4.7 mmol/L (3.4-5.0)
--- NOTE | 2021-03-19 12:41 | NUR ---
Animal Control Officer attended clinical rounds with the team. Patient's daughter, Dunia is at bedside. Patient is ready for discharge back to [facility]. MANUEL faxed clinical updates to Mikayla at [facility] who advised they will be able to accept today. MANUEL collaborated with Mikayla and bedside RN to schedule transport for 1300. MANUEL provided transport time to patient who advised her daughter Dunia who was in rounds is aware she is discharging today. Patient states she will text Dunia the transport time. MANUEL faxed negative covid results and discharge orders. Discharge Plan: [facility]
--- NOTE | 2021-03-19 13:22 | NUR ---
IV dc'd catheter tip intact. Pt wheeled out to [facility] by a staff member at this time.
== END 2021-03-19 13:22 ==
LOC: COL.ER 03:59 → MEDICAL 06:27
PROVIDERS: Emergency Medicine; Physician Assistant; ADMIT Internal Medicine
DX: R07.9 Chest pain, unspecified (principal); I25.10 Atherosclerotic heart disease of native coronary artery without angina pectoris; M48.54XA Collapsed vertebra, not elsewhere classified, thoracic region, initial encounter for fracture; M25.552 Pain in left hip; M25.551 Pain in right hip; M19.90 Unspecified osteoarthritis, unspecified site; I10 Essential (primary) hypertension; E78.5 Hyperlipidemia, unspecified; D64.9 Anemia, unspecified; E11.9 Type 2 diabetes mellitus without complications; G47.30 Sleep apnea, unspecified; Z20.822 Contact with and (suspected) exposure to COVID-19; Z95.2 Presence of prosthetic heart valve; Z79.84 Long term (current) use of oral hypoglycemic drugs; Z79.899 Other long term (current) drug therapy; Z79.01 Long term (current) use of anticoagulants; Z79.891 Long term (current) use of opiate analgesic; Z87.19 Personal history of other diseases of the digestive system
CPT/HCPCS: G0378; J1815

== ENCOUNTER 2021-03-23 16:29 | Inpatient (IN) | payer MEDICARE, BC ==
[~2021-03-23] VITALS: Wt 60.0 kg
[~2021-03-23 16:29] MED LIST changes: +ACIDOPHILIS PO; +HYDROCORTISONE30 G3 TP; +IMODIUM 2MG CAPS2 MG PO
[2021-03-23 17:25] LABS: BASO % 0.3 % (0.0-2.0); EOS # 0.1 K/mm3 (0.0-0.7); GRAN # 4.9 K/mm3 (1.4-6.5); GRAN % 76.1 % (42.2-75.2); HEMOGLOBIN 10.2 g/dl (12.5-16.0); LYMPH # 0.6 K/mm3 (1.2-3.4); LYMPH % 9.2 % (20.0-51.0); MEAN CELL VOLUME 90 fl (80.0-100.0); MEAN CORPUSCULAR HEMOGLOBIN 29 pg (27.0-31.0); MEAN CORPUSCULAR HGB CONC 32 g/dl (33.0-37.0); MEAN PLATELET VOLUME 9.9 fl (7.4-10.4); MONO # 0.8 K/mm3 (0.1-0.6); MONO % 12.2 % (1.7-9.3); PLATELET COUNT 277 K/mm3 (130-400); RED BLOOD COUNT 3.56 M/mm3 (4.10-5.30); REDCELL DISTRIBUTION WIDTH-CV 16.1 % (11.5-14.5)
[2021-03-23 17:26] LABS: HEMATOCRIT 32.1 % (37.0-47.0)
[2021-03-23 17:30] LABS: PROTHROMBIN TIME 33.3 SECONDS (9.7-12.8)
[2021-03-23 17:38] LABS: COLLECTION METHOD CATHETER
[2021-03-23 17:38] LABS: ALBUMIN 3.5 gm/dL (3.4-4.8); BILIRUBIN,TOTAL 0.7 mg/dL (0.2-1.2); CALCIUM 10.4 mg/dL (8.4-10.2); CREATININE, serum 2.49 mg/dL (0.57-1.11); TOTAL PROTEIN 7.9 gm/dL (6.2-8.1)
[2021-03-23 17:40] LABS: POTASSIUM 5.8 mmol/L (3.5-4.5)
[2021-03-23 17:48] LABS: MUCOUS Present /lpf; PH 5 (5-8); SQUAMOUS EPITHELIAL 0-2 /hpf; URINE APPEARANCE Clear; URINE BACTERIA Rare /hpf; URINE BILIRUBIN Negative (NEGATIVE); URINE BLOOD Negative (NEGATIVE); URINE COLOR Yellow; URINE GLUCOSE Negative (NEGATIVE); URINE KETONE Trace (NEGATIVE); URINE LEUKOCYTE ESTERASE Negative (NEGATIVE); URINE NITRATE Negative (NEGATIVE); URINE PROTEIN(semi-quant) 1+ (NEGATIVE); URINE RBC 0-2 /hpf; URINE UROBILINOGEN Negative (NEGATIVE)
--- NOTE | 2021-03-23 21:30 | NUR ---
Patient to medical room 311 at this time. She is alert and partially oriented, able to say name/birthdate and current year but not place or president. She states she is not in pain when lying flat but when raised to swallow pills, excrutiating back pain occurs. Fentanyl patch applied to left shoulder and PRN [place] administered. Call light in reach.
[2021-03-23 23:34] VITALS: BP 114/94; PULSE 75; TEMP 97.9
[2021-03-24] MEDS ORDERED: CYMBALTA 30MG30 MG PO (02:28)
[2021-03-24] MEDS ORDERED: NORCO 325 MG-51 TAB PO (02:31)
[2021-03-24 04:18] VITALS: BP 92/60; PULSE 72; TEMP 98
--- NOTE | 2021-03-24 07:17 | NUR ---
RECEIVED REPORT FROM MINE DAVISON. PT ASLEEP IN BED. BREATHING REG/UNLABORED. CALL DA SILVA IN REACH
[2021-03-24 08:46] VITALS: BP 180/86; PULSE 86; TEMP 97.8
[2021-03-24 09:32] LABS: MEAN CELL VOLUME 92 fl (80.0-100.0); MEAN CORPUSCULAR HGB CONC 32 g/dl (33.0-37.0); MEAN PLATELET VOLUME 10.8 fl (7.4-10.4); PLATELET COUNT 245 K/mm3 (130-400); RED BLOOD COUNT 3.04 M/mm3 (4.10-5.30); REDCELL DISTRIBUTION WIDTH-CV 16.2 % (11.5-14.5)
[2021-03-24 09:38] LABS: HEMATOCRIT 27.9 % (37.0-47.0); HEMOGLOBIN 8.8 g/dl (12.5-16.0); MEAN CORPUSCULAR HEMOGLOBIN 29 pg (27.0-31.0)
[2021-03-24 09:39] LABS: CALCIUM 9.4 mg/dL (8.4-10.2); CREATININE, serum 1.85 mg/dL (0.57-1.11)
--- NOTE | 2021-03-24 10:41 | NUR ---
LISINOPRIL HELD FOR CLARIFICATION OF DOSAGE PER VERBAL ORDER FROM DR. ALEXANDER
--- NOTE | 2021-03-24 11:08 | NUR ---
Michelle met with the pt(daughter Dunia present). who stated they are wanting to do comfort care. The pt lives at [facility]. The pt DPOA-HC is Dunia [phone]. The pt is not independent with ADLs and uses walker and she needs help with bathing, eating, dressing. The uses a glucometer and uses night oxygen at 2L. The pt uses [facility] at [facility]. Michelle to await further recommendations and follow up as needed. Michelle spoke with Emiliano Dunia about comfort care.
--- NOTE | 2021-03-24 11:23 | NUR ---
Sw called [facility] to inform them that pt has chosen comfort care. They informed they will contact us tomorrow for follow for d/c needs. They informed Sw that she will return to [facility] for comfort care. Sw informed Daughter Dunia of informations and that Sw will follow up tomorrow with her. Sw to informed doctor as well. D/C: [facility] for comfort care.
--- NOTE | 2021-03-24 11:53 | NUR ---
Pt will d/c today and will d/c around 1:30 pm 03/24. Sw has faxed over updates to [facility], informed nurse and called daughter to informed her of the pt leaving at 1:30 pm.
--- NOTE | 2021-03-24 13:23 | NUR ---
PT ON COMFORT CARE. REFUSED ASSESSMENT THIS MORNING
[2021-03-24] MEDS ORDERED: COUMADIN 3MG3 MG/TAB PO (13:45)
[2021-03-24] MEDS ORDERED: FLEXERIL 1010 MG/TAB PO (13:46)
[2021-03-24] MEDS ORDERED: LIPITOR 10MG10 MG PO (13:47)
[2021-03-24] MEDS ORDERED: ZETIA 10MG TAB10 MG PO (13:48)
[2021-03-24] MEDS ORDERED: ISOSORBIDE MON120 MG PO (13:48)
--- NOTE | 2021-03-24 13:48 | NUR ---
VITALS, GLUCOSE CHECK, AND NEURO ASSESSMENT NOT DONE. PT REFUSED. PT ON COMFORT CARE
[2021-03-24] MEDS ORDERED: ASPIRIN E.C. 8181 MG PO (13:49)
[2021-03-24] MEDS ORDERED: ENULOSE10 GM/15 M PO (13:55)
[2021-03-24] MEDS ORDERED: SYSTANE 0.3-0.1 EACH OP (13:56)
[2021-03-24] MEDS ORDERED: ANTI-DIARRHEAL2 MG PO (13:57)
[2021-03-24] MEDS ORDERED: PROTONIX 40MG T40 MG PO (13:58)
[2021-03-24] MEDS ORDERED: FENTANYL 25 MCG TD (14:00)
[2021-03-24] MEDS ORDERED: ATIVAN 1MG T1 MG/TAB PO (14:00)
[2021-03-24] MEDS ORDERED: ZOFRAN 4MG T4 MG/TAB PO (14:00)
[2021-03-24] MEDS ORDERED: ROXANOL 20MG20 MG/ML SL (14:00)
[2021-03-24 14:22] VITALS: BP 180/86; PULSE 86; TEMP 97.8
--- NOTE | 2021-03-24 15:46 | NUR ---
PT IV D/C'd. TRANSFERRED TO [facility] WITH [facility] EMPLOYEE. NO QUESTIONS OR CONCERNS.
== END 2021-03-24 15:47 | disposition hospice, inpatient (51) | DRG 682 ==
LOC: COL.ER 16:29 → MEDICAL 19:13
PROVIDERS: Personal Emergency Response Attendant; Physician Assistant; ADMIT Internal Medicine
DX: N17.9 Acute kidney failure, unspecified (principal); G93.41 Metabolic encephalopathy; E87.5 Hyperkalemia; I25.10 Atherosclerotic heart disease of native coronary artery without angina pectoris; E78.5 Hyperlipidemia, unspecified; M19.90 Unspecified osteoarthritis, unspecified site; D64.9 Anemia, unspecified; G47.30 Sleep apnea, unspecified; K59.03 Drug induced constipation; N18.30 Chronic kidney disease, stage 3 unspecified; E11.22 Type 2 diabetes mellitus with diabetic chronic kidney disease; I12.9 Hypertensive chronic kidney disease with stage 1 through stage 4 chronic kidney disease, or unspecified chronic kidney disease; G89.29 Other chronic pain; M54.9 Dorsalgia, unspecified; T40.605A Adverse effect of unspecified narcotics, initial encounter; I25.2 Old myocardial infarction; Z95.2 Presence of prosthetic heart valve; Z95.5 Presence of coronary angioplasty implant and graft; Z79.01 Long term (current) use of anticoagulants; Z79.84 Long term (current) use of oral hypoglycemic drugs; Z79.82 Long term (current) use of aspirin; Z87.891 Personal history of nicotine dependence
CPT/HCPCS: 99222-AI; J7030